=== PATIENT | female | born 1960 | race Caucasian/White ===

== ENCOUNTER 2021-02-20 08:56 | Outpatient (REF) | payer OTHER, SELFPAY ==
[2021-02-20 09:46] LABS: Hematocrit 45.6 % (37-47); Hemoglobin 14.6 g/dl (12.0-16.0); Mean Corpuscular Hemoglobin 28.6 pg (27.0-33.0); Mean Corpuscular Volume 89.4 fL (80-98); Mean Platelet Volume 9.9 fL (9.4-12.3); Platelet Count 301 X10*3/uL (160-400); Red Cell Distribution Width 13.8 % (11.0-16.0); White Blood Count 8.6 X10*3/uL (4.8-10.8)
[2021-02-20 09:50] LABS: Glucose Urine UA NEG (NEG); Leukocyte Esterase Urine NEG (NEG); Nitrite Urine NEG (NEG); PH 6.5 (5.0-8.0); Urine Blood TRACE (NEG); Urine Ketones 5 MG/DL (NEG); Urine Protein NEG (NEG-TRACE)
[2021-02-20 09:56] LABS: Appearance Urine HAZY; Color Urine YELLOW
[2021-02-20 10:09] LABS: WBC Urine 0 /HPF (0-4)
[2021-02-20 10:10] LABS: Bacteria Urine 1+ /LPF; Mucus Urine 3+ /LPF; Squamous Epithelial Cell Urine 2+ /LPF
[2021-02-20 10:11] LABS: Alanine Aminotransferase 15 U/L (0-31); Albumin Level 4.2 g/dL (3.5-5.0); Alkaline Phosphatase 97 U/L (39-117); Anion Gap 12 (12-20); Aspartate Amino Transferase 15 U/L (5-31); Bilirubin Direct < 0.2 mg/dL (0.0-0.5); Bilirubin Total 0.3 mg/dL (0.0-1.0); Blood Urea Nitrogen 15 mg/dL (9-16); Calcium 9.2 mg/dL (8.4-10.2); Carbon Dioxide 27 mmol/L (22-29); Chloride 108 mmol/L (96-108); Cholesterol 281 mg/dL; Estimated Glomerular Filt Rate > 60; Glucose Random 100 mg/dL (60-115); HDL Cholesterol 41 mg/dL; LDL Cholesterol Calculated 206 mg/dl; Potassium 4.8 mmol/L (3.3-5.1); Sodium 142 mmol/L (135-145); Triglycerides 172 mg/dL
[2021-02-20 10:25] LABS: Thyroid Stimulating Hormone 0.92 uIU/mL (0.32-4.0)
[2021-02-20 11:30] LABS: Erythrocyte Sedimentation Rate 28 MM/HR (0-20)
[2021-02-21 09:06] LABS: Lyme Abs Screen <0.90 index
== END 2021-02-20 08:57 | disposition home or self-care (01) ==
LOC: HO.LAB 08:56
PROVIDERS: PCP Internal Medicine; Visit Provider Internal Medicine
DX: M16.11 Unilateral primary osteoarthritis, right hip (principal)
CPT/HCPCS: 36415; 80048; 80061; 80076; 81001; 84443; 85027; 85652; 86617; 86618

== ENCOUNTER 2021-03-10 07:49 | Outpatient (REF) | payer OTHER, SELFPAY | END 2021-03-10 07:50 | disposition home or self-care (01) | LOC: HO.HOSX 07:49 | PROVIDERS: Visit Provider Physician Assistant | DX: Z13.89 Encounter for screening for other disorder (principal) ==

== ENCOUNTER 2021-04-15 15:25 | Outpatient (REF) | payer OTHER, MEDICAID, SELFPAY ==
--- NOTE | ~2021-04-15 | MM_ITS ---
EXAMINATION: MM SCREENING DIGITAL BREAST TOMOSYNTHESIS, BILATERAL CLINICAL INFORMATION: Screening. Asymptomatic. The lifetime risk of breast cancer based on the Tyrer-Cuzick Model is 5.2%. COMPARISON: Mammography: None TECHNIQUE: Digital breast tomosynthesis is performed in both the craniocaudal and mediolateral oblique views along with computer-aided detection (CAD). Synthesized 2D images are generated from the tomosynthesis. FINDINGS: There are scattered areas of fibroglandular density (ACR BI-RADS breast composition Category b). There are no significant masses, abnormal calcifications, or other abnormalities. Region of question architectural distortion in the central aspect on craniocaudal view right breast as seen on tomosynthesis views directly represents superimposition of vascular structures. MM/MM tomosynthesis screening BI IMPRESSION: No mammographic evidence of malignancy. ASSESSMENT: BI-RADS 1: Negative RECOMMENDATION: Routine annual mammography screening. This patient's information was entered into a reminder system with a target due date for their next mammogram.
== END 2021-04-15 15:26 | disposition home or self-care (01) ==
LOC: HO.MAMMO 15:25
PROVIDERS: Visit Provider Internal Medicine
DX: Z12.31 Encounter for screening mammogram for malignant neoplasm of breast (principal)
CPT/HCPCS: 77063; 77067

== ENCOUNTER 2022-01-15 12:09 | Outpatient (REF) | payer OTHER, MEDICAID, SELFPAY ==
--- NOTE | ~2022-01-15 | XR_ITS ---
EXAMINATION: XR KNEE, RIGHT CLINICAL INFORMATION: M17.11 - Unilateral primary osteoarthritis, right knee COMPARISON: Radiographs right knee 04/27/2019 TECHNIQUE: Right knee is imaged in 3 views including AP projections with weightbearing. FINDINGS: Normal bony mineralization. No fracture dislocation or destructive process. There are tricompartment osteoarthritic changes, greatest medial compartment, with joint narrowing and subchondral sclerosis. There are osteophytes from the femoral condyles and tibial plateau and patella. Degenerative changes are slightly increased since 2019. Small suprapatellar effusion. Hoffa's fat pad is unremarkable. There is borderline spurring at quadriceps insertion. There are no erosive changes or definite chondrocalcinosis. XR/XR knee RT 2V IMPRESSION: -Tricompartment osteoarthritis, greatest medial compartment. -Small suprapatellar effusion.
[2022-01-15 12:26] LABS: MANUAL DIFF FLAG NO
[2022-01-15 12:35] LABS: Basophils Absolute Auto 0.1 X10*3/uL (0.0-0.2); Basophils Percent Auto 0.6 % (0-2); Eosinophils Absolute Auto 0.2 X10*3/uL (0.0-0.4); Eosinophils Percent Auto 2.4 % (0-4); Hematocrit 41.8 % (37.0-47.0); Hemoglobin 13.5 g/dl (12.0-16.0); Imm Gran Abs Auto 0.01 X10*3/uL (0.00-0.03); Imm Gran Pct Auto 0.1 % (0.0-0.4); Lymphocytes Absolute Auto 3.2 X10*3/uL (1.2-4.9); Lymphocytes Percent Auto 41.1 % (20-40); Mean Corpuscular HGB Conc 32.3 g/dl (31.0-35.0); Mean Corpuscular Hemoglobin 28.6 pg (27.0-33.0); Mean Corpuscular Volume 88.6 fL (80.0-98.0); Mean Platelet Volume 9.8 fL (9.4-12.3); Monocytes Absolute Auto 0.4 X10*3/uL (0.1-1.2); Monocytes Percent Auto 5.6 % (2-11); Neutrophils Absolute Auto 3.9 x10*3/uL (2.0-8.3); Neutrophils Percent Auto 50.2 % (45-73); Platelet Count 254 X10*3/uL (160-400); Red Blood Count 4.72 X10*6/uL (4.20-5.50); Red Cell Distribution Width 14.4 % (11.0-16.0); White Blood Count 7.8 X10*3/uL (4.8-10.8)
[2022-01-15 13:10] LABS: Estimated Average Glucose 108 mg/dL; Hemoglobin A1c % 5.4 %
[2022-01-15 13:14] LABS: Alanine Aminotransferase 15 U/L (0-31); Albumin Level 4.2 g/dL (3.5-5.0); Alkaline Phosphatase 101 U/L (39-117); Anion Gap 11 (12-20); Aspartate Amino Transferase 14 U/L (5-31); Bilirubin Total 0.3 mg/dL (0.0-1.0); Blood Urea Nitrogen 13 mg/dL (9-16); Calcium 9.9 mg/dL (8.4-10.2); Carbon Dioxide 26 mmol/L (22-29); Chloride 107 mmol/L (96-108); Cholesterol 294 mg/dL; Estimated Glomerular Filt Rate > 60; Glucose Random 98 mg/dL (60-115); HDL Cholesterol 36 mg/dL; LDL Cholesterol Calculated 201 mg/dl; Potassium 4.2 mmol/L (3.3-5.1); Sodium 140 mmol/L (135-145); Total Protein 7.2 g/dL (6.5-8.0); Triglycerides 287 mg/dL
[2022-01-15 13:36] LABS: Free T4 (Free Thyroxine) 0.88 ng/dL (0.71-1.85); Thyroid Stimulating Hormone 1.41 uIU/mL (0.32-4.0)
[2022-01-15 13:49] LABS: Folate > 20.0 ng/mL (> or = 4.0); Vitamin B12 944 pg/mL (200-900)
== END 2022-01-15 12:10 | disposition home or self-care (01) ==
LOC: HO.XRAY 12:09
PROVIDERS: PCP Internal Medicine; Visit Provider Internal Medicine
DX: M17.11 Unilateral primary osteoarthritis, right knee (principal); E78.00 Pure hypercholesterolemia, unspecified
CPT/HCPCS: 36415; 73560; 80053; 80061; 82306; 82607; 82746; 83036; 84439; 84443; 85025

== ENCOUNTER → 2022-01-21 09:42 | Outpatient (BNVA) | payer OTHER, MEDICAID, SELFPAY | PROVIDERS: PCP Internal Medicine; Visit Provider Orthopaedic Surgery | DX: M17.11 Unilateral primary osteoarthritis, right knee (principal) | CPT/HCPCS: 99202 ==

== ENCOUNTER → 2022-03-08 08:02 | Outpatient (BNVA) | payer MEDICARE, OTHER, MEDICAID, SELFPAY | PROVIDERS: PCP Internal Medicine; Visit Provider Physician Assistant | DX: Z12.11 Encounter for screening for malignant neoplasm of colon (principal); K52.9 Noninfective gastroenteritis and colitis, unspecified; R63.4 Abnormal weight loss; K21.9 Gastro-esophageal reflux disease without esophagitis; Z87.891 Personal history of nicotine dependence | CPT/HCPCS: 99202 ==

== ENCOUNTER 2022-04-27 11:46 | Outpatient (REF) | payer MEDICARE, OTHER, MEDICAID, SELFPAY ==
--- NOTE | ~2022-04-27 | XR_ITS ---
EXAMINATION: XR CHEST CLINICAL INFORMATION: Abnormal weight loss COMPARISON: Previous chest x-rays most recent June [address] most recent November 2018 TECHNIQUE: 2 views of the chest were obtained. FINDINGS: The cardiac and mediastinal contours are stable. There is increased attenuation at the right cardiophrenic angle that is stable and compared with previous chest CT likely corresponds to prominent epicardial fat. The lungs are clear. There is no pleural effusion or pneumothorax. There are degenerative changes of the spine. XR/XR chest 2V IMPRESSION: No evidence for acute disease in the chest.
[2022-04-27 13:08] LABS: C Reactive Protein 1.37 mg/dL (< or = 0.50)
[2022-04-27 13:13] LABS: Erythrocyte Sedimentation Rate 27 MM/HR (0-20)
[2022-04-29 14:12] LABS: Transglutaminase IgA <1.0 U/mL
[2022-05-04 15:17] LABS: Endomysial IgA Antibody Negative (Negative)
== END 2022-04-27 11:47 | disposition home or self-care (01) ==
LOC: HO.LAB 11:46
PROVIDERS: PCP Internal Medicine; Visit Provider Physician Assistant
DX: K52.9 Noninfective gastroenteritis and colitis, unspecified (principal); R63.4 Abnormal weight loss; K21.9 Gastro-esophageal reflux disease without esophagitis; Z87.891 Personal history of nicotine dependence
CPT/HCPCS: 36415; 71046; 85652; 86140; 86231; 86364

== ENCOUNTER → 2022-08-09 09:10 | Outpatient (BNVA) | payer MEDICARE, MEDICAID, SELFPAY | PROVIDERS: PCP Internal Medicine; Visit Provider Orthopaedic Surgery | DX: M17.11 Unilateral primary osteoarthritis, right knee (principal); M54.30 Sciatica, unspecified side; M47.812 Spondylosis without myelopathy or radiculopathy, cervical region | CPT/HCPCS: 99212 ==

== ENCOUNTER 2022-09-29 09:30 | Outpatient (REF) | payer MEDICARE, MEDICAID, SELFPAY ==
--- NOTE | ~2022-09-29 | MM_ITS ---
EXAMINATION: MM SCREENING DIGITAL BREAST TOMOSYNTHESIS, BILATERAL CLINICAL INFORMATION: Screening. Asymptomatic. The lifetime risk of breast cancer based on the Tyrer-Cuzick Model is 8.6%. COMPARISON: Mammography: 04/15/2021 TECHNIQUE: Digital breast tomosynthesis is performed in both the craniocaudal and mediolateral oblique views along with computer-aided detection (CAD). Synthesized 2D images are generated from the tomosynthesis. FINDINGS: There are scattered areas of fibroglandular density (ACR BI-RADS breast composition category B). There is a stable parenchymal pattern of the left breast with no new abnormal dominant masses or suspicious grouping of microcalcifications. Within the upper outer aspect of the right breast, there appear to be some intramammary lymph nodes. No suspicious grouping of microcalcifications is identified. MM/MM tomosynthesis screening BI IMPRESSION: No significant change. ASSESSMENT: BI-RADS 2: Benign RECOMMENDATION: Routine annual mammography screening. This patient's information was entered into a reminder system with a target due date for their next mammogram.
== END 2022-09-29 09:31 | disposition home or self-care (01) ==
LOC: HO.MAMMO 09:30
PROVIDERS: Visit Provider Internal Medicine
DX: Z12.31 Encounter for screening mammogram for malignant neoplasm of breast (principal)
CPT/HCPCS: 77063; 77067

== ENCOUNTER → 2022-10-05 10:46 | Outpatient (BNVA) | payer MEDICARE, OTHER, MEDICAID, SELFPAY | PROVIDERS: PCP Internal Medicine; Visit Provider Orthopaedic Surgery | DX: Z13.89 Encounter for screening for other disorder (principal) ==

== ENCOUNTER 2022-10-19 13:29 | Outpatient (REF) | payer MEDICARE, OTHER, MEDICAID, SELFPAY ==
--- NOTE | 2022-10-19 13:36 | ECG_ITS ---
Test Reason : preop Blood Pressure : / mmHG Vent. Rate : 070 BPM Atrial Rate : 070 BPM P-R Int : 214 ms QRS Dur : 092 ms QT Int : 408 ms P-R-T Axes : 056 -16 070 degrees QTc Int : 440 ms Sinus rhythm with 1st degree A-V block Minimal voltage criteria for LVH, may be normal variant ( [place] product ) Borderline ECG No previous ECGs available Referred By: David Mosquera Electronically Signed By:ALPHONSE ASHLEY MD
[2022-10-19 13:44] LABS: MANUAL DIFF FLAG NO
[2022-10-19 13:55] LABS: Basophils Absolute Auto 0.1 X10*3/uL (0.0-0.2); Basophils Percent Auto 0.7 % (0-2); Eosinophils Absolute Auto 0.3 X10*3/uL (0.0-0.4); Eosinophils Percent Auto 2.7 % (0-4); Hematocrit 42.6 % (37.0-47.0); Imm Gran Abs Auto 0.04 X10*3/uL (0.00-0.03); Imm Gran Pct Auto 0.4 % (0.0-0.4); Lymphocytes Absolute Auto 3.7 X10*3/uL (1.2-4.9); Lymphocytes Percent Auto 37.1 % (20-40); Mean Corpuscular HGB Conc 32.9 g/dl (31.0-35.0); Mean Corpuscular Hemoglobin 28.9 pg (27.0-33.0); Mean Corpuscular Volume 87.8 fL (80.0-98.0); Mean Platelet Volume 9.6 fL (9.4-12.3); Monocytes Absolute Auto 0.6 X10*3/uL (0.1-1.2); Monocytes Percent Auto 6.2 % (2-11); Neutrophils Absolute Auto 5.3 x10*3/uL (2.0-8.3); Neutrophils Percent Auto 52.9 % (45-73); Platelet Count 248 X10*3/uL (160-400); Red Blood Count 4.85 X10*6/uL (4.20-5.50); Red Cell Distribution Width 13.8 % (11.0-16.0); White Blood Count 10.1 X10*3/uL (4.8-10.8)
[2022-10-19 14:28] LABS: Anion Gap 15 (12-20); Blood Urea Nitrogen 17 mg/dL (9-16); Carbon Dioxide 25 mmol/L (22-29); Chloride 104 mmol/L (96-108); Estimated Glomerular Filt Rate > 60; Glucose Random 95 mg/dL (60-115); Potassium 3.9 mmol/L (3.3-5.1); Sodium 140 mmol/L (135-145)
== END 2022-10-19 13:30 | disposition home or self-care (01) ==
LOC: HO.LAB 13:29
PROVIDERS: PCP Internal Medicine; Visit Provider Orthopaedic Surgery
DX: Z01.810 Encounter for preprocedural cardiovascular examination (principal); Z01.812 Encounter for preprocedural laboratory examination
CPT/HCPCS: 36415; 80048; 85025; 93005

== ENCOUNTER 2022-10-28 13:34 | Outpatient (RCR) | payer MEDICARE, MEDICAID, SELFPAY ==
--- NOTE | 2022-10-28 14:50 | MHC.PT.EP ---
[facility] [place] Office [place] [facility] [place] Office [address] Amber Felton 140 [facility] [phone] F: [phone] F: [phone] F: [phone] F: [phone] Physical Therapy Plan of Care Date of Evaluation: Date of Surgery: 11/10/2022 Diagnosis: RIGHT knee osteoarthritis prehab for R TKA scheduled 11/10/2022 Assessment: Patient is a pleasant 62 y.o. female who is referred to PT by Dr. David Mosquera MD, with Dx of RIGHT knee osteoarthritis, and prehab for TKA scheduled on 11/10/2022. Patient impairments include pain, swelling, weakness, limited ROM, antalgic gait. Patient current functional limitations are bending, stair use, heavy lifting, walking long distance, prolonged standing. Patient will only be seen for this visit and educated in preparation for surgery. She agrees with this plan, all questions answered. Frequency and Duration: The patient will be seen no FUP, just today's visit for education and preparation for surgery Short Term Goals: Assisted Goals: Treatment Plan: Modalities to reduce pain, spasms and effusion. Manual therapy to restore motion and function. Therapeutic exercise to improve strength and flexibility. Neuromuscular re-education for posture and balance. Therapeutic activities to return to functional activities of daily living. Electronically signed by: Kirsty Parker, PT, DPT Please sign and return to therapist. Thank you for your referral.
== END 2022-10-28 14:50 | disposition home or self-care (01) ==
LOC: HO.PT 13:34
PROVIDERS: PCP Internal Medicine; Visit Provider Orthopaedic Surgery
DX: M17.11 Unilateral primary osteoarthritis, right knee (principal)
CPT/HCPCS: 97110; 97161; 97530

== ENCOUNTER → 2022-11-04 11:03 | Outpatient (BNVA) | payer MEDICARE, OTHER, MEDICAID, SELFPAY | PROVIDERS: PCP Internal Medicine; Visit Provider Physician Assistant | DX: Z01.818 Encounter for other preprocedural examination (principal); M17.11 Unilateral primary osteoarthritis, right knee | CPT/HCPCS: 99212 ==

== ENCOUNTER 2022-11-10 06:01 | Inpatient (IN) | payer MEDICARE, MEDICAID, SELFPAY ==
[2022-10-28 11:55] VITALS: BP 175/83; PULSE 71; RESP 16; O2SAT 97; BMI 39.1
--- NOTE | 2022-10-28 12:10 | P.CONAN_ITS ---
Documented by User: Marie Villanueva NP 11/09/22 08:33 HPI - Anesthesia Eval Consult details Narrative: 62yo F for Right Knee Replacement Total 11/10/2022 PCP cleared [facility] Active Problems Active Problems: All Active Problems (Updated 10/19/22 @ 14:27 by Immanuel Sims MD) Preop exam for internal medicine (Acute) Colonoscopy refused (Acute) Colon cancer screening (Acute) Tobacco abuse (Acute) RLS (restless legs syndrome) (Acute) Sciatica (Acute) Weight loss (Acute) Chronic diarrhea (Acute) COPD (chronic obstructive pulmonary disease) (Acute) Personal history of nicotine dependence (Acute) Hypertension (Acute) Hypercholesterolemia (Acute) GERD (gastroesophageal reflux disease) (Acute) Retinal degenerative disease (Acute) Hypersomnia (Acute) Insomnia (Acute) Generalized anxiety disorder (Acute) Obesity (Acute) Class 2 severe obesity with body mass index (BMI) of 35 to 39.9 with serious comorbidity (Acute) DJD (degenerative joint disease) of cervical spine (Acute) Osteoarthritis of right knee (Acute) Osteoarthritis of right hip (Acute) Past Medical History Medical History COPD (chronic obstructive pulmonary disease) Generalized anxiety disorder GERD (gastroesophageal reflux disease) Hypercholesterolemia Hypertension Insomnia Osteoarthritis of right hip Personal history of COVID-19 Smoker Family History Family History Mother No problems noted. Father Myocardial infarct Lung cancer Sister Myocardial infarct CVA (cerebral vascular accident) Ovarian cancer Brother CVA (cerebral vascular accident) Family history of problems with anesthesia: No Surgical History Surgical History History of carpal tunnel release of both wrists History of section History of inguinal hernia repair History of Problems with Anesthesia: No Social History Social History Housing: House Are you a primary farm or ranch animal caretaker to a significant other at home: No Do you presently have visiting nurse or other home services: No Alcohol intake: current Alcohol intake frequency: holidays/special occasions only Alcohol type: wine Patient Tobacco Use Status: Current everyday Tobacco user Tobacco use type: Cigarette Cigarettes Per Day: 10 Years Smoked: 2 Smoked in Last 30 Days: Yes e-Cigarette/Vaping Use: Never Used Patient Interested in Nicotine Replacement: Yes Patient Given Instructions on How to Stop Smoking: Yes Date Education Initiated: 10/28/22 Second Hand Smoke Exposure: No Use of substances other than those prescribed or required for medical reasons: No Have you been hit, kicked, punched, or otherwise hurt by someone within the past year? If so, by whom?: No Are you DNR?: No Advance Directives: No Advance Directives Information Provided: Yes Advance Directives on File: No Recently lost weight without trying: Yes How much weight loss: 24-33 pounds Eating poorly because of decreased appetite: Yes Nutrition screen score: 6 service: No Current occupational status: disabled Current occupation: Right handed Cognitive needs: No Hearing needs: No Vision needs: Yes Narrative Narrative: No recent illness No CP/SOB within limits of pain Meds Allergies Allergy/AdvReac Type Severity Reaction Status Date / Time amitriptyline AdvReac Severe worsening Verified 11/04/22 11:14 anxiety gabapentin AdvReac Severe increased Verified 11/04/22 11:14 anxiety, dyspnea Home Medications Medication Instructions Recorded Confirmed Last Taken Type acetaminophen 650 mg 650 mg PO Q12H PRN Pain 10/27/22 10/27/22 11/09/22 History tablet,extended release Nicoderm 10/28/22 11/10/22 History Exam Exam Date and Time: October 28, 2022 1210 Height,Weight and Vital Signs: Height 5 ft 2 in Weight 97.069 kg Last Vital Signs Pulse 71 10/28/22 11:55 Resp 16 10/28/22 11:55 BP 175/83 H 10/28/22 11:55 Pulse Ox 97 10/28/22 11:55 O2 Del Method 10/28/22 11:55 Pertinent Lab Results Pertinent Lab Results: Laboratory Tests 10/19/22 10/19/22 13:42 13:42 WBC 10.1 Hgb 14.0 Hct 42.6 Plt Count 248 Sodium 140 Potassium 3.9 Chloride 104 Carbon Dioxide 25 BUN 17 H Creatinine 0.82 Narrative Narrative: EKG 09/2022 Vent. Rate : 070 BPM ? ? Atrial Rate : 070 BPM ?? P-R Int : 214 ms? QRS Dur : 092 ms ? ? QT Int : 408 ms ? ? ? P-R-T Axes : 056 -16 070 degrees ?? QTc Int : 440 ms ? Sinus rhythm with 1st degree A-V block Minimal voltage criteria for LVH, may be normal variant ( [place] product ) Borderline ECG No previous ECGs available Airway TM Dist: >3cm Neck ROM: Full Denture: Upper and Lower (Doesnt wear) Assessment and Plan Assessment Anesthesia Assessment: Anesthesia Plan Discussed, Smoking Cess. Discussed (Pt will consider nicotine patch) and PAT Visit Final Anesthetic Review Family History of Problems with Anesthesia: No History of Problems with Anesthesia: No Documented by User: Charu Chakraborty MD 11/10/22 07:56 PMFSH Past Medical History Medical History COPD (chronic obstructive pulmonary disease) Generalized anxiety disorder GERD (gastroesophageal reflux disease) Hypercholesterolemia Hypertension Insomnia Osteoarthritis of right hip Personal history of COVID-19 Smoker Family History Family History Mother No problems noted. Father Myocardial infarct Lung cancer Sister Myocardial infarct CVA (cerebral vascular accident) Ovarian cancer Brother CVA (cerebral vascular accident) Surgical History Surgical History History of carpal tunnel release of both wrists History of section History of inguinal hernia repair Social History Social History Housing: House Are you a primary farm or ranch animal caretaker to a significant other at home: No Do you presently have visiting nurse or other home services: No Alcohol intake: current Alcohol intake frequency: holidays/special occasions only Alcohol type: wine Patient Tobacco Use Status: Current everyday Tobacco user Tobacco use type: Cigarette Cigarettes Per Day: 10 Years Smoked: 2 Smoked in Last 30 Days: Yes e-Cigarette/Vaping Use: Never Used Patient Interested in Nicotine Replacement: Yes Patient Given Instructions on How to Stop Smoking: Yes Date Education Initiated: 10/28/22 Second Hand Smoke Exposure: No Use of substances other than those prescribed or required for medical reasons: No Have you been hit, kicked, punched, or otherwise hurt by someone within the past year? If so, by whom?: No Are you DNR?: No Advance Directives: No Advance Directives Information Provided: Yes Advance Directives on File: No Recently lost weight without trying: Yes How much weight loss: 24-33 pounds Eating poorly because of decreased appetite: Yes Nutrition screen score: 6 service: No Current occupational status: disabled Current occupation: Right handed Cognitive needs: No Hearing needs: No Vision needs: Yes Meds Allergies Allergy/AdvReac Type Severity Reaction Status Date / Time amitriptyline AdvReac Severe worsening Verified 11/04/22 11:14 anxiety gabapentin AdvReac Severe increased Verified 11/04/22 11:14 anxiety, dyspnea Home Medications Medication Instructions Recorded Confirmed Last Taken Type acetaminophen 650 mg 650 mg PO Q12H PRN Pain 10/27/22 10/27/22 11/09/22 History tablet,extended release Nicoderm 10/28/22 11/10/22 History Exam Airway Mallampati Class: II Heart: rrr Lungs: cta Assessment and Plan Assessment Anesthesia Assessment: Chart Reviewed Final Anesthetic Review NPO: Yes ASA Class: III Final Preanesthetic Review: No Changes in Pt Med Stat, Consent Obtained/Reviewed and Anes Risks/Benef Reviewed Patient Risk: Intermediate Procedure Risk: Intermediate Anesthetic Plan Anesthetic Plan: Spinal, Regional Block and Agree w/ Assess. and Plan Disposition: Standard PACU
[2022-10-28 14:25] LABS: MRSA Nasal PCR NEGATIVE (Negative); SA Nasal PCR NEGATIVE (Negative)
[2022-11-10] VITALS (24 sets, daily range): BP systolic 91–188; BP diastolic 41–92; PULSE 51–71; RESP 10–20; TEMP 36.1–36.9; O2SAT 93–98
--- NOTE | ~2022-11-10 | XR_ITS ---
EXAMINATION: XR KNEE, RIGHT CLINICAL INFORMATION: Status post total right knee arthroplasty. COMPARISON: Right knee radiographs dated 01/15/2022. TECHNIQUE: AP, oblique, and lateral of the right knee. FINDINGS: Prosthetic components of the right total knee arthroplasty are appropriately aligned. No periprosthetic fracture. Gas from recent surgery is present in the joint and surrounding soft tissues. A joint effusion is present. XR/XR knee RT 2V IMPRESSION: Appropriate alignment of the right total knee arthroplasty.
[2022-11-10 06:41] LABS: COVID-19 Test Negative (Negative); IDNOW Serial# 16C4AD1C
[2022-11-10 06:43] LABS: Hemoglobin 14.4 g/dl (12.0-16.0)
[2022-11-10] MEDS: Lactated Ringers 1,000 ML 100 ML IVCONT ×2 (06:52→10:22)
--- NOTE | 2022-11-10 07:35 | MHC.SHP ---
Pre-Procedural Eval Section A Date of Service: 11/10/22 The patient is an INPATIENT: No Changes since office visit: No Cold of Flu in the past 2 weeks, No New Medical Problems, No Changes in Medication and No Patient answered all questions The History & Physical has been completed within 30 days and I have reviewed it.: Yes Section B Chief Complaint: Unilateral primary osteoarthritis, right knee Allergies: Allergies Allergy/AdvReac Type Severity Reaction Status Date / Time amitriptyline AdvReac Severe worsening Verified 11/04/22 11:14 anxiety gabapentin AdvReac Severe increased Verified 11/04/22 11:14 anxiety, dyspnea Plan I have reviewed the history and physical and performed a pertinent physical examination on my patient. No changes have occurred unless specified. Time Spent With Patient Time: Total time managing care of this patient today ____ minutes.
--- NOTE | 2022-11-10 09:14 | PM.OP ---
Brief Operative Note Date of Service: 11/10/22 Pre-op diagnosis: right knee OA Post-op diagnosis: same Procedure: Right TKA Implants: Karina Triathlon press fit CR 10/23/10 Surgeon: David Mosquera MD Anesthesia: regional and spinal Was an Healthcare Financial Analyst used for this Procedure?: Yes Healthcare Financial Analyst: Amelia Navarro Estimated blood loss (mL): 175 IV fluids (mL): 1,000 Pathology: other Condition: stable Disposition: PACU
[2022-11-10] MEDS: HYDROmorphone HCl 0.5 MG/0.5 ML SYRINGE 0.25 MG IVPUSH ×7 (10:30→23:59)
[2022-11-10] MEDS: oxyCODONE HCl Immed Release 5 MG TABLET 10 MG PO ×4 (11:11→22:29)
[2022-11-10] MEDS: ceFAZolin Sodium/Dextrose,Iso 2 GM/50 ML PIGGYBACK IV (13:25)
--- NOTE | 2022-11-10 14:01 | HO.PM.IMCN ---
History of Present Illness Data of Consult Service Date: 11/10/22 Requesting physician: David Mosquera Primary Care Provider: Immanuel Sims MD HPI 62 year old women with hx of HTN and COPD admitted by Orthopedic surgery and is status post right knee arthroplasty. Surgery was unremarkable. Patient denies any pain. She has been able to eat and drink without any nausea or vomiting. She is currently resting in bed. vital signs stable. Review of Systems Review of Systems: Denies any recent fever chills or decrease in appetite respiratory denies any shortness of breath coverage production cardiovascular denies chest pain gastrointestinal denies any dysphagia abdominal pain nausea vomiting or diarrhea genitourinary denies any dysuria frequency or hematuria musculoskeletal denies any joint pain or swelling neuropsych denies any weakness or seizures all other systems reviewed are negative [facility] Medical History COPD (chronic obstructive pulmonary disease) Generalized anxiety disorder GERD (gastroesophageal reflux disease) Hypercholesterolemia Hypertension Insomnia Osteoarthritis of right hip Personal history of COVID-19 Smoker Family History Mother No problems noted. Father Myocardial infarct Lung cancer Sister Myocardial infarct CVA (cerebral vascular accident) Ovarian cancer Brother CVA (cerebral vascular accident) Surgical History History of carpal tunnel release of both wrists History of section History of inguinal hernia repair Social History Household Members: Family Housing: House Are you a primary home care music therapist to a significant other at home: No Do you presently have visiting nurse or other home services: No Alcohol intake: current Alcohol intake frequency: holidays/special occasions only Alcohol type: wine Patient Tobacco Use Status: Never used Tobacco Tobacco use type: Cigarette Cigarettes Per Day: 10 Years Smoked: 2 Smoked in Last 30 Days: Yes e-Cigarette/Vaping Use: Never Used Patient Interested in Nicotine Replacement: Yes Patient Given Instructions on How to Stop Smoking: Yes Date Education Initiated: 10/28/22 Second Hand Smoke Exposure: No Use of substances other than those prescribed or required for medical reasons: No Currently Displaying Signs/Symptoms of Drug Intoxication Withdrawal: No Have you been hit, kicked, punched, or otherwise hurt by someone within the past year? If so, by whom?: No Do you feel safe in your current relationship?: Yes Is there a partner from a previous relationship who is making you feel unsafe now?: No Are you DNR?: No Advance Directives: No Advance Directives Information Provided: Yes Advance Directives on File: No Do you have thoughts of harming others: None Do you have a plan to hurt others: No Plan Recently lost weight without trying: No How much weight loss: 24-33 pounds Eating poorly because of decreased appetite: Yes Nutrition screen score: 4 Nutrition Risks: No Nutritional Risk Patient : No : No Poor oral hygiene: No service: No Current occupational status: disabled Current occupation: Right handed Cognitive needs: No Hearing needs: No Vision needs: Yes Meds Allergies Allergy/AdvReac Type Severity Reaction Status Date / Time amitriptyline AdvReac Severe worsening Verified 11/04/22 11:14 anxiety gabapentin AdvReac Severe increased Verified 11/04/22 11:14 anxiety, dyspnea Active Medications: Current Medications Acetaminophen (Acetaminophen 325 Mg Tablet) 650 mg PO Q6H PRN PRN Reason: Pain, Mild (Pain Scale 1-3) Celecoxib (Celecoxib 200 Mg Capsule) 200 mg PO BID RENETTA Hydromorphone HCl (Hydromorphone Hcl 0.5 Mg/0.5 Ml Syringe) 0.25 mg IVPUSH Q4H PRN; Protocol PRN Reason: Pain, Severe (Pain Scale 7-10) Lactated Ringer's (Lr) 1,000 mls @ 100 mls/hr IVCONT .Q10H [facility] Last Infusion: 11/10/22 10:20 Dose: Infused Lactated Ringer's (Lr) 1,000 mls @ 100 mls/hr IVCONT .Q10H [facility] Last Admin: 11/10/22 10:22 Dose: 100 mls/hr Cefazolin Sodium/Dextrose (Ancef) 2 gm in 50 mls @ 100 mls/hr IV POSTOP ONE Stop: 11/10/22 14:29 Last Infusion: 11/10/22 13:57 Dose: Infused Ondansetron HCl (Ondansetron Hcl 4 Mg/2 Ml Vial) 4 mg IVPUSH Q8H PRN PRN Reason: Nausea and Vomiting Oxycodone HCl (Oxycodone Hcl Immed Release 5 Mg Tablet) 10 mg PO Q4H PRN PRN Reason: Pain, Moderate (Pain Scale 4-6 Last Admin: 11/10/22 11:11 Dose: 10 mg Oxycodone HCl (Oxycodone Hcl Er 10 Mg Tab.Er.12h) 10 mg PO BID RENETTA Senna (Sennosides 8.6 Mg Tablet) 17.2 mg PO BEDTIME PRN PRN Reason: Constipation Sodium Chloride (0.9 % Sodium Chloride Flush 3 Ml Syringe) 3 ml IVFLUSH QSHIFT RENETTA Last Admin: 11/10/22 13:14 Dose: Not Given Home Medications Medication Instructions Recorded Confirmed Last Taken Type acetaminophen 650 mg 650 mg PO Q12H PRN Pain 10/27/22 10/27/22 11/09/22 History tablet,extended release Nicoderm 10/28/22 11/10/22 History Physical Exam Vital Signs and Narrative: Vital Signs: Last Vital Signs Temp 97.2 F 11/10/22 11:51 Pulse 69 11/10/22 13:38 Resp 18 11/10/22 11:51 BP 158/68 H 11/10/22 13:38 Pulse Ox 97 11/10/22 13:38 O2 Del Method 11/10/22 11:51 O2 Flow Rate 2.0 11/10/22 11:51 BMI result Body Mass Index 39.1 Appearing in no acute distress head is normocephalic atraumatic eyes pupils are PERRLA sclera is anicteric mouth throat mucous membranes are intact and moist neck is supple no lymphadenopathy, no JVD noted lung sounds are clear to auscultation heart regular rate rhythm, clear S1, S2 positive bowel sounds, abdomen is soft, nontender neuro patient is alert x3, no focal deficits Right knee surgical incision covered with dressing Results Labs 11/10/22 06:31 Labs: Laboratory Results - last 24 hr 11/10/22 06:11 COVID-19 ([facility]) Negative COVID-19 Clin Com See Note Imaging Radiologist's Impressions: Impressions Knee X-Ray 11/10/22 09:45 IMPRESSION: Appropriate alignment of the right total knee arthroplasty. Assessment and Plan (1) Osteoarthritis of right knee: Status: Acute Plan 62 year old women s/p RTKA RTKA management as per surgical team pain management HTN elevated blood pressure readings continue Lisinopril Mental health continue home medications DVT prophylaxis as per surgical team Attending Dr. Alva Full code Medical consult complete, will sign off Time Spent With Patient Time: Total time managing care of this patient today ____ minutes.
[2022-11-10] MEDS: Acetaminophen 325 MG TABLET 650 MG PO ×2 (14:49→22:29)
[2022-11-10] MEDS: oxyCODONE HCl ER 10 MG TAB.ER.12H PO (19:24)
[2022-11-10] MEDS: 0.9 % Sodium Chloride Flush 3 ML SYRINGE IVFLUSH (19:25)
[2022-11-10] MEDS: rOPINIRole HCL 1 MG TABLET PO (22:01)
[2022-11-11] VITALS (7 sets, daily range): BP systolic 129–178; BP diastolic 63–80; PULSE 67–85; RESP 16–18; TEMP 36.5–37.4; O2SAT 92–95
[2022-11-11] MEDS: Lactated Ringers 1,000 ML 100 ML IVCONT ×2 (02:50→21:03)
[2022-11-11] MEDS: oxyCODONE HCl Immed Release 5 MG TABLET 10 MG PO ×5 (03:26→21:03)
[2022-11-11] MEDS: HYDROmorphone HCl 0.5 MG/0.5 ML SYRINGE 0.25 MG IVPUSH ×3 (05:20→14:07)
[2022-11-11 06:55] LABS: MANUAL DIFF FLAG NO
[2022-11-11 06:58] LABS: Basophils Percent Auto 0.3 % (0-2); Eosinophils Percent Auto 0.1 % (0-4); Hematocrit 38.2 % (37.0-47.0); Hemoglobin 12.5 g/dl (12.0-16.0); Imm Gran Abs Auto 0.05 X10*3/uL (0.00-0.03); Imm Gran Pct Auto 0.4 % (0.0-0.4); Lymphocytes Absolute Auto 1.9 X10*3/uL (1.2-4.9); Lymphocytes Percent Auto 16.7 % (20-40); Mean Corpuscular HGB Conc 32.7 g/dl (31.0-35.0); Mean Corpuscular Hemoglobin 28.7 pg (27.0-33.0); Mean Corpuscular Volume 87.8 fL (80.0-98.0); Mean Platelet Volume 10.1 fL (9.4-12.3); Monocytes Absolute Auto 0.9 X10*3/uL (0.1-1.2); Monocytes Percent Auto 7.9 % (2-11); Neutrophils Absolute Auto 8.5 x10*3/uL (2.0-8.3); Neutrophils Percent Auto 74.6 % (45-73); Platelet Count 226 X10*3/uL (160-400); Red Blood Count 4.35 X10*6/uL (4.20-5.50); Red Cell Distribution Width 13.7 % (11.0-16.0); White Blood Count 11.5 X10*3/uL (4.8-10.8)
[2022-11-11 07:20] LABS: Anion Gap 12 (12-20); Blood Urea Nitrogen 11 mg/dL (9-16); Calcium 8.4 mg/dL (8.4-10.2); Carbon Dioxide 28 mmol/L (22-29); Chloride 102 mmol/L (96-108); Creatinine Clr Calc Pharmacy 78.2; Estimated Glomerular Filt Rate > 60; Glucose Fasting 119 mg/dL (60-99); Sodium 138 mmol/L (135-145)
[2022-11-11] MEDS: Acetaminophen 325 MG TABLET 650 MG PO ×2 (07:33→21:03)
--- NOTE | 2022-11-11 08:25 | PHA.MEDREC ---
Pharmacy Consult ? Medication Reconciliation Pharmacy has completed the medication reconciliation. Reviewed med rec done by nursing
--- NOTE | 2022-11-11 09:29 | P.PNOP_ITS ---
Subjective Subjective Date of Service: 11/11/22 Interval history: POD 1 sp RT TKA Physical Exam Vital Signs: Vital Signs: Last Vital Signs Temp 98.4 F 11/11/22 07:35 Pulse 69 11/11/22 08:07 Resp 18 11/11/22 07:35 BP 178/74 H 11/11/22 08:07 Pulse Ox 93 11/11/22 08:07 O2 Del Method Room Air 11/11/22 07:35 O2 Flow Rate 2.0 11/10/22 11:51 BMI result Body Mass Index 39.1 Const: General: cooperative, healthy appearing and no acute distress Resp: Effort & Inspection: normal respiratory effort and able to speak in complete sentences Cardio: Rate: regular rate Peripheral pulses: Peripheral pulses 2+ throughout GI: Palpation (GI): Soft to palpation Skin: General skin exam: no rashes or lesions noted Extrem: Other: incision clean dry and intact. Courtney intact. No erythema or joint effusion. Calf supple nontender. Neurovascularly intact. Procedures Date of Service Date of Service: 11/11/22 Progress Note: A&P Assessment and plan (1) Status post total right knee replacement: Status: Acute Assessment and Plan: * Continue pain mgmnt * Begin Aspirin for dvt ppx * begin PT for RT TKA * Dispo planning-Pending PT eval, pain mgmnt Time Spent With Patient Time: Total time managing care of this patient today ____ minutes. Quality Stroke Does the patient have a stroke diagnosis?: No VTE Prior VTE?: No VTE Risk Level:: Surgical - very high VTE Device Contraindication: N/A - Device Ordered VTE Drug Contraindication: N/A - Med Ordered
--- NOTE | 2022-11-11 09:46 | HO.POSTANES ---
Post Anesthesia Evaluation Post Anesthesia Evaluation Vital Signs: Vital Signs Temp Pulse Resp BP Pulse Ox O2 Del Method 11/11/22 08:07 69 178/74 H 93 11/11/22 07:35 98.4 F 69 18 178/74 H 93 Room Air 11/11/22 03:32 97.7 F 67 17 177/80 H 94 Room Air 11/10/22 23:57 98.5 F 69 18 179/79 H 95 Room Air Anesthesia: Spinal and Nerve Block Mental Status: Awake Pain Control: Satisfactory Nausea/Vomiting: None Hydration: Adequate Anesthesia-Related Issues: No Anes. Related Issues Comments: Patient s blood pressure on the higher side , being managed by the hospitalist .
[2022-11-11] MEDS: Aspirin 325 MG TABLET PO (09:51)
[2022-11-11] MEDS: oxyCODONE HCl ER 10 MG TAB.ER.12H PO ×2 (09:52→21:03)
[2022-11-11] MEDS: rOPINIRole HCL 1 MG TABLET PO ×3 (09:53→21:02)
--- NOTE | 2022-11-11 10:50 | MHC.CM.PN ---
PT REPORTS SHE LIVES WITH HER AND IS INDEPENDENT WITH CARE SHE HAD NO SERVICES AND USED A CANE SEWING MACHINIST SHE IS AWARE SHE WILL NEED VNA AT DC SHE ALSO REPORTS SHE HAS A WALKER AT HOME FOR USE UPON DC PT IS NOT COVID VAX SHE COMPLETED A HCP TODAY NAMING HER HER AGENT HER PCP IS JACINTO SCOTT IMM DELIVERED DC PLAN IS HOME WITH [facility] TO TRANSPORT
--- NOTE | 2022-11-11 12:53 | W.PM.OPN ---
Operative Note Operative Note Date of Service: 11/10/22 Narrative: Date of Service: 11/10/22 Pre-op diagnosis: right knee OA Post-op diagnosis: same Procedure: Right TKA Implants: [place] Triathlon press fit CR 10/23/10 Surgeon: David Mosquera MD Anesthesia: regional and spinal Was an Web Applications Administrator used for this Procedure?: Yes Web Applications Administrator: Amelia Navarro Estimated blood loss (mL): 175 IV fluids (mL): 1,000 Pathology: other Condition: stable Disposition: PACU Procedure in detail: The patient was brought to the operating room and prepped and draped in standard sterile fashion. A time-out was called to identify proper site proper procedure proper surgeon and IV antibiotics were administered. 1 g of IV tranexamic acid was administered. I began by making a midline incision to the retinaculum and performed a medial parapatellar arthrotomy. The patella was translated laterally and the knee was flexed up. There was medial compartment eburnation. I performed a small medial peel and resected the infrapatellar fat pad. Montague's line was then used to drill my intramedullary femoral guide and my distal femur cut of 10 mm was made in 5 degrees of valgus while protecting the soft tissues. I then measured a # 3 femur and placed my cutting guide and made my anterior posterior and chamfer cuts protecting the soft tissues at all times. Once I was satisfied with my cuts I turned my attention to the tibia. I removed the meniscus medially and laterally and , using an external cutting guide, in line with the tibial crest and the third ray, I made my distal tibial cut in 3 deg slope of while protecting the PCL the posterior soft tissues at all times. An extension block was used to confirm appropriate amount of bony resection. I then sized a #4 tibia and once I was satisfied that there was complete tibial coverage I placed my trial and with the trial femur in place took the knee through range of motion. I was satisfied with the extension and flexion as well as the stability and balance at 0, 30 and 90 degrees. I then turned my attention to the patella where I removed 1 cm from the undersurface of the patella and then trialed a 29a patellar button. Again the knee was taken through range of motion I was satisfied with the tracking. I then returned to the femur and drilled my femoral lug holes and prepared the tibia. A femoral bone plug was placed and the knee was irrigated copiously. I then press fit the patella, tibia and femur in standard fashion. I trialed different inserts until I selected a # 11 insert. The final insert was placed and a 3 minutes iodine soak with local TXA was performed. A Werewolf cautery wand was used to maintain hemostasis over the capsule and meniscal beds, the gutters and peripatellar soft tissues. The knee was then closed with a running Quill suture, a 3 0 Vicryl and magi on the skin. Patient was then placed in sterile dressing and brought to recovery room in stable condition there were no known complications.
[2022-11-11] MEDS: 0.9 % Sodium Chloride Flush 3 ML SYRINGE IVFLUSH ×2 (14:09→21:04)
[2022-11-12] MEDS: oxyCODONE HCl Immed Release 5 MG TABLET 10 MG PO ×2 (03:16→07:11)
[2022-11-12] MEDS: Acetaminophen 325 MG TABLET 650 MG PO ×2 (03:16→09:41)
[2022-11-12 03:37] VITALS: BP 141/67; PULSE 75; RESP 18; TEMP 37; O2SAT 95
[2022-11-12 05:52] LABS: MANUAL DIFF FLAG NO
[2022-11-12 05:56] LABS: Basophils Percent Auto 0.3 % (0-2); Eosinophils Percent Auto 0.3 % (0-4); Hematocrit 36.6 % (37.0-47.0); Imm Gran Abs Auto 0.04 X10*3/uL (0.00-0.03); Imm Gran Pct Auto 0.4 % (0.0-0.4); Lymphocytes Absolute Auto 1.7 X10*3/uL (1.2-4.9); Lymphocytes Percent Auto 17.1 % (20-40); Mean Corpuscular HGB Conc 32.8 g/dl (31.0-35.0); Mean Corpuscular Hemoglobin 28.9 pg (27.0-33.0); Mean Corpuscular Volume 88.2 fL (80.0-98.0); Mean Platelet Volume 10.1 fL (9.4-12.3); Monocytes Percent Auto 9.7 % (2-11); Neutrophils Absolute Auto 7.2 x10*3/uL (2.0-8.3); Neutrophils Percent Auto 72.2 % (45-73); Platelet Count 195 X10*3/uL (160-400); Red Blood Count 4.15 X10*6/uL (4.20-5.50); Red Cell Distribution Width 13.6 % (11.0-16.0)
[2022-11-12 06:11] LABS: Anion Gap 13 (12-20); Blood Urea Nitrogen 9 mg/dL (9-16); Calcium 8.3 mg/dL (8.4-10.2); Carbon Dioxide 27 mmol/L (22-29); Chloride 105 mmol/L (96-108); Creatinine Clr Calc Pharmacy 81.3; Estimated Glomerular Filt Rate > 60; Glucose Fasting 100 mg/dL (60-99); Potassium 4.3 mmol/L (3.3-5.1); Sodium 141 mmol/L (135-145)
[2022-11-12] MEDS: Enoxaparin Sodium 40 MG/0.4 ML SYRINGE SUBCUT (07:11)
[2022-11-12] MEDS: Celecoxib 200 MG CAPSULE PO (07:11)
[2022-11-12] MEDS: rOPINIRole HCL 1 MG TABLET PO (07:11)
[2022-11-12] MEDS: 0.9 % Sodium Chloride Flush 3 ML SYRINGE IVFLUSH (07:12)
[2022-11-12] MEDS: oxyCODONE HCl ER 10 MG TAB.ER.12H PO (07:12)
[2022-11-12 07:28] VITALS: BP 126/61; PULSE 85; RESP 18; TEMP 36.1; O2SAT 93
[2022-11-12 07:54] VITALS: BP 126/61; PULSE 85; O2SAT 93
--- NOTE | 2022-11-12 07:54 | P.DS_ITS ---
DS: Providers Provider Date of Service: 11/12/22 Date of admission: 11/10/22 06:01 Primary care physician: Immanuel Sims MD Consults: 11/10/22 10:57 Consult to Hospitalist Routine Consulting Provider: Hospitalist Reason For Exam: Routine medical management DS: Diagnosis Discharge Diagnosis (1) Status post total right knee replacement: Status: Acute DS: Summary Hospital Course Hospital Course: The patient underwent a successful right total knee arthroplasty, they were transferred to PACU and then to the floor to recover. During their stay, their vitals were stable, afebrile at 98.6. Labs were unremarkable, H/H 10.0/12.0. POD 1 they were started on Lopvenox for DVT ppx, they also received Physical Therapy services twice a day. Prior to discharge, their dressing was changed, incision clean dry and intact, new Aquacel dressing applied and the plan was to be discharged home with VNA services. Time Spent with Patient Time attestation: Total time managing care of this patient today ____ minutes. Discharge coordination time: Less than 30 minutes Quality: Safe Use of Opioids Does Pt have an Active Cancer Diagnosis on the Problem List?: No Quality: Stroke Does the patient have a stroke diagnosis?: No Physical Exam Vital Signs: Vital Signs: Last Vital Signs Temp 97.0 F 11/12/22 07:28 Pulse 85 11/12/22 07:28 Resp 18 11/12/22 07:28 BP 126/61 11/12/22 07:28 Pulse Ox 93 11/12/22 07:28 O2 Del Method Room Air 11/12/22 07:28 O2 Flow Rate 2.0 11/10/22 11:51 BMI result Body Mass Index 39.1 Const: General: cooperative, healthy appearing and no acute distress Resp: Effort & Inspection: normal respiratory effort and able to speak in complete sentences Cardio: Rate: regular rate Peripheral pulses: Peripheral pulses 2+ throughout GI: Palpation (GI): Soft to palpation Skin: Lesions: no lesions Rashes: no rashes Extrem: Other: Right knee incision site is c/d/i. Courtney intact. Able to dorsiflex and plantarflex. Sensation intact. New Aquacel dressing applied. DS: Data Data Completed and Pending Pending studies at discharge: Pending at discharge 11/10/22 09:07 Surgical [PTH] Routine Labs on day of discharge: Laboratory Results - last 24 hr 11/12/22 11/12/22 04:59 04:59 WBC 10.0 RBC 4.15 L Hgb 12.0 Hct 36.6 L MCV 88.2 MCH 28.9 MCHC 32.8 RDW 13.6 Plt Count 195 MPV 10.1 Immature Gran % (Auto) 0.4 Neut % (Auto) 72.2 Lymph % (Auto) 17.1 L [place] % (Auto) 9.7 Eos % (Auto) 0.3 Baso % (Auto) 0.3 Lymph # (Auto) 1.7 [place] # (Auto) 1.0 Eos # (Auto) 0.0 Baso # (Auto) 0.0 Abs Immat Gran (auto) 0.04 H Absolute Neuts (auto) 7.2 Absolute Nucleated RBC 0.000 Nucleated RBC % (auto) 0.0 Sodium 141 Potassium 4.3 Chloride 105 Carbon Dioxide 27 Anion Gap 13 BUN 9 Creatinine 0.76 Estim Creat Clear Calc 81.3 Estimated GFR > 60 Fasting Glucose 100 H Calcium 8.3 L Discharge Plan Discharge Anticipated Discharge Date/Time: 11/12/22 12:00 Patient Disposition: Home Health Service Discharge Diagnosis: s/p RTKA Referrals: Bisi Garner PA-C [Physician Labor Expediter] - 11/25/22 2:00 pm Po,Immanuel Abbott MD [Primary Care Provider] - 1 Week Discharge Medications: New enoxaparin 40 mg/0.4 mL Syringe 40 mg subcut Q24H 42 Days Qty: 16.8 0RF celecoxib 200 mg Capsule 200 mg PO BID 30 Days Qty: 60 0RF sennosides [Senna Lax] 8.6 mg Tablet 17.2 mg PO BEDTIME PRN (Reason: Constipation) 30 Days Qty: 30 0RF acetaminophen 325 mg Tablet 650 mg PO Q6H PRN (Reason: Pain, Mild (Pain Scale 1-3)) 30 Days Qty: 240 0RF oxycodone 5 mg Tablet 10 mg PO Q4H PRN (Reason: Pain, Moderate (Pain Scale 4-6) 7 Days Qty: 42 0RF Rx Instructions: Partial Fill upon patient request. Continued bupropion HCl 300 mg tablet extended release 24 hr 300 mg PO QAM 90 Days Qty: 90 3RF lisinopril 40 mg tablet 40 mg PO DAILY Qty: 90 0RF (DME) walker Misc See Rx Instructions .MEDSUPPLY Qty: 1 0RF Rx Instructions: Folding Front wheeled walker acetaminophen 650 mg Tablet Extended Release 650 mg PO Q12H PRN (Reason: Pain) Nicoderm duloxetine 30 mg capsule,delayed release(DR/EC) 30 mg PO DAILY Qty: 30 2RF lidocaine [Aspercreme (lidocaine)] 4 % adhesive patch,medicated 1 patch topical DAILY PRN (Reason: pain) Qty: 30 1RF ropinirole 1 mg tablet 1 mg PO TID 30 Days Qty: 90 3RF Discharge Orders: Discharge Order (Routine); Ordered 11/12/22 Ordered By: Amelia Navarro Diet: Advance to usual diet Activity on Discharge: Use cane or walker Stand Alone Forms: Patient Portal Discharge page Care Plan Goals: restore fxn to rt knee Health Concerns: None Plan of Treatment: Physical Therapy for ROM 0-120, quad strength, gait training. Use walker for ambulation Limit stair climbing, No shower, No tub bath, No driving Continue anticoagulant Keep Aquacel dressing clean, dry and intact. Follow up with orthopedics in 2 weeks Assessment: Stable for d/c
--- NOTE | 2022-11-12 07:57 | P.F2F_ITS ---
Service Date Service Date: 11/12/22 Encounter Date of encounter: 11/12/22 Reasons for Services Signs and symptoms assessed: s/p RTKA. Pt. is considered homebound due to recent surgery. Unable to drive, poor balance, poor gait mechanics. Reason for physical therapy: home safety and mobility, therapeutic exercises, restore joint function, gait/transfer training, assess need for DME and ADL training Homebound: Leaving the home is medically contraindicated at this time without the asist of a device and/or another person due th the listed conditions above and below. Reason homebound: unsteady gait / fall risk, leg weakness, pain with ambulation, pain with transfers, poor balance / fall risk and unable to drive Certification: Based on the above findings, I certify that this patient is confined to the home and needs intermittent detention care, physical therapy and/or speech therapy, or continues to need occupational therapy. The patient is under my care, and I have initiated the establishment of the plan of care. The patient will be followed by a physician who will periodically review the plan of care. Time Spent With Patient Time: Total time managing care of this patient today ____ minutes.
--- NOTE | 2022-11-12 08:31 | MHC.CM.PN ---
PT WILL DC HOME TODAY WITH [facility] TO TRANSPORT
[2022-11-12] MEDS: HYDROmorphone HCl 0.5 MG/0.5 ML SYRINGE 0.25 MG IVPUSH (09:42)
== END 2022-11-12 09:58 | disposition home health service (06) | DRG 470 ==
LOC: HO.SSSA 06:05 → HO.S3 10:33
PROVIDERS: Physician Assistant; Admitting Provider Physician Assistant; PCP Internal Medicine; Visit Provider Orthopaedic Surgery
PROC: 0SRC0JA Replacement of Right Knee Joint with Synthetic Substitute, Uncemented, Open Approach (ICD-10-PCS; CPT 27447; principal; 2022-11-10 07:30)
DX: M17.11 Unilateral primary osteoarthritis, right knee (principal); J44.9 Chronic obstructive pulmonary disease, unspecified; K21.9 Gastro-esophageal reflux disease without esophagitis; E78.00 Pure hypercholesterolemia, unspecified; Z20.822 Contact with and (suspected) exposure to COVID-19; Z88.8 Allergy status to other drugs, medicaments and biological substances; Z79.899 Other long term (current) drug therapy
CPT/HCPCS: 36415; 73560; 80048; 85014; 85018; 85025; 86850; 86900; 86901; 87635; 87640; 87641; 88305; 88311; 97110; 97116; 97162; C1776; J0131; J0690; J1170; J1650; J2250; J2370; J2405; J2795; J3010

== ENCOUNTER → 2022-11-25 14:04 | Outpatient (BNVA) | payer MEDICARE, OTHER, MEDICAID, SELFPAY | PROVIDERS: PCP Internal Medicine; Visit Provider Physician Assistant | DX: Z47.1 Aftercare following joint replacement surgery (principal); Z96.651 Presence of right artificial knee joint | CPT/HCPCS: 99212 ==

== ENCOUNTER 2022-12-23 15:03 | Outpatient (REF) | payer MEDICARE, OTHER, MEDICAID, SELFPAY ==
--- NOTE | ~2022-12-23 | XR_ITS ---
EXAMINATION: AP bilateral knee standing, right knee and AP pelvis. CLINICAL INDICATIONS: Pain. COMPARISON: Right knee 11/10/2022. TECHNIQUE: AP bilateral knee standing 1 view. AP pelvis one view. Right knee 2 views. FINDINGS: AP bilateral knee: There is a total right knee prostheses in the satisfactory alignment unchanged to 11/10/2022 exam. There is loss of medial and lateral compartment joint space and intercondylar eminence spurring. No loose body seen. The soft tissues are unremarkable. Right knee: There is a total right knee prosthesis with prosthetic components in satisfactory alignment. There is no prosthetic loosening. No soft tissue abnormality. AP pelvis: There is mild reduction in bilateral hip joint space but no bony erosive changes seen. SI joints are symmetric and normal. No fracture, dislocation or bony abnormality. XR/XR pelvis 1-2V IMPRESSION: 1. Total right knee prosthesis with prosthetic components in satisfactory alignment. There is no prosthetic loosening. 2. Mild degenerative changes medial and lateral compartment left knee. 3. Mild degenerative changes bilateral hip joints.
--- NOTE | ~2022-12-23 | XR_ITS ---
EXAMINATION: AP bilateral knee standing, right knee and AP pelvis. CLINICAL INDICATIONS: Pain. COMPARISON: Right knee 11/10/2022. TECHNIQUE: AP bilateral knee standing 1 view. AP pelvis one view. Right knee 2 views. FINDINGS: AP bilateral knee: There is a total right knee prostheses in the satisfactory alignment unchanged to 11/10/2022 exam. There is loss of medial and lateral compartment joint space and intercondylar eminence spurring. No loose body seen. The soft tissues are unremarkable. Right knee: There is a total right knee prosthesis with prosthetic components in satisfactory alignment. There is no prosthetic loosening. No soft tissue abnormality. AP pelvis: There is mild reduction in bilateral hip joint space but no bony erosive changes seen. SI joints are symmetric and normal. No fracture, dislocation or bony abnormality. XR/XR knee RT 2V IMPRESSION: 1. Total right knee prosthesis with prosthetic components in satisfactory alignment. There is no prosthetic loosening. 2. Mild degenerative changes medial and lateral compartment left knee. 3. Mild degenerative changes bilateral hip joints.
--- NOTE | ~2022-12-23 | XR_ITS ---
EXAMINATION: AP bilateral knee standing, right knee and AP pelvis. CLINICAL INDICATIONS: Pain. COMPARISON: Right knee 11/10/2022. TECHNIQUE: AP bilateral knee standing 1 view. AP pelvis one view. Right knee 2 views. FINDINGS: AP bilateral knee: There is a total right knee prostheses in the satisfactory alignment unchanged to 11/10/2022 exam. There is loss of medial and lateral compartment joint space and intercondylar eminence spurring. No loose body seen. The soft tissues are unremarkable. Right knee: There is a total right knee prosthesis with prosthetic components in satisfactory alignment. There is no prosthetic loosening. No soft tissue abnormality. AP pelvis: There is mild reduction in bilateral hip joint space but no bony erosive changes seen. SI joints are symmetric and normal. No fracture, dislocation or bony abnormality. XR/XR knee standing BI IMPRESSION: 1. Total right knee prosthesis with prosthetic components in satisfactory alignment. There is no prosthetic loosening. 2. Mild degenerative changes medial and lateral compartment left knee. 3. Mild degenerative changes bilateral hip joints.
== END 2022-12-23 15:04 | disposition home or self-care (01) ==
LOC: HO.HOSX 15:03
PROVIDERS: Visit Provider Physician Assistant
DX: Z47.1 Aftercare following joint replacement surgery (principal); Z96.651 Presence of right artificial knee joint; M25.551 Pain in right hip; M25.552 Pain in left hip
CPT/HCPCS: 72170; 73560; 73565; 99212

== ENCOUNTER 2023-01-19 10:00 | Outpatient (RCR) | payer MEDICARE, OTHER, MEDICAID, SELFPAY ==
--- NOTE | 2022-11-25 15:19 | MHC.PT.EP ---
[facility] [place] Office [place] Office [place] Office [address] Amber Felton [address] [phone] F: [phone] F: [phone] F: [phone] F: [phone] Physical Therapy Plan of Care Date of Evaluation: Date of Surgery: 11/10/22 Diagnosis: POST- OP Rt TKA Assessment: 62 YO FEMALE REF TO PT S/P RIGHT TKR ON 11/10/22- SHE NOTES DIFFIC W RESTLESS LEG SYNDROME. SHE RESIDES W HER SPOUSE IN A 2 LEVEL HOME, BEDROOM ON 1ST FLOOR, AND IS CURRENTLY AMB W A W/WALKER . OBJECTIVE FINDINGS: LIMITED AROM Rt KNEE, TIGHT PSOAS MM LEN AND DECR ANKLE DF LEN; DECR STRENGTH IN PROX / LUMBOPELVIC AND Rt LE, POST-OP PAIN IN RIGHT KNEE ,AND HEALING ANT Rt KNEE INCISION. FUNCTIONALLY, Pt IS AMB W A W/WALKER- SHE HAS COMPENSATORY GAIT, MODIFIED STAIR MGMT, DECR STANDING, SLEEPING, AND DECR DEJA TO ADLs REQ Rt KNEE FLEX. Pt IS A VERY GOOD PT CANDIDATE TO GUIDE HER IN HER POST-OP TKR COURSE, ADDRESSING THE ABOVE FINDINGS, PAIN MGMT, AND MAXIMIZING FUNCTIONAL INDEPENDENCE. Frequency and Duration: The patient will be seen 2 x WK x 10 WKS Short Term Goals: *Pt'S RIGHT KNEE PAIN DECR TO 2-3/10 *Pt INCREASE Rt KNEE ROM -> 0* EXTEN AND PROGRESSIVELY TO 120* FLEX *INCR FLEXIB IN PSOAS/ CALF MM TO IMPROVE EFFICIENCY OF GAIT ON LEVEL AND STAIRS *REDUCE Rt LE EDEMA AND MONITOR/ ADDRESS SCAR MOB NEEDED Mcfp Goals: Pt INDEP W HEP PROGRESSION AND SELF-SX MGMT STRATEGIES IN 10 WKS Pt RESUME REG ADLs EVIDENT W IMPROVED LEFI SCORE IN 10 WKS Pt INCR LE STRENGTH BY 1 GRADE IN 10 WKS Treatment Plan: Modalities to reduce pain, spasms and effusion. Manual therapy to restore motion and function. Therapeutic exercise to improve strength and flexibility. Neuromuscular re-education for posture and balance. Therapeutic activities to return to functional activities of daily living. Electronically signed by: EDIS WASHBURN,PT Please sign and return to therapist. Thank you for your referral.
--- NOTE | 2023-02-25 12:53 | MHC.PT.DC ---
[facility] [place] Office [place] Office [place] Office [address] Amber Felton 140 [facility] [phone] F: [phone] F: [phone] F: [phone] F: [phone] Physical Therapy Discharge Report Diagnosis: POST- OP Rt TKA Date of Surgery: 11/10/22 Date of Evaluation: 11/25/22 Date of Discharge: 02/25/23 Treatments to Date: 11 Cancellations to Date: 4 No Shows to Date: 1 Discharge Status: Improved Function Independent with HEP Patient Elected to Stop Visit Non-compliance Discharge Summary: THE Pt PROGRESSED WELL IN PT , SUPPORTING HER POST-OP COURSE AND ADVANCING HER FUNCTIONAL INDEPENDENCE- SHE CANC AND N0-SHOWED LAST FEW SCHED PT APPTS , AND, THEREFORE, A FORMAL RE-ASSESS WAS NOT PERFORMED. Electronically signed by: EDIS WASHBURN,PT Please sign and return to therapist. Thank you for your referral.
== END 2023-02-25 12:52 | disposition home or self-care (01) ==
LOC: HO.PT 10:00
PROVIDERS: Visit Provider Physician Assistant
DX: M17.11 Unilateral primary osteoarthritis, right knee (principal)
CPT/HCPCS: 97110; 97162

== ENCOUNTER 2023-04-29 14:19 | Outpatient (AMB) | payer MEDICARE, MEDICAID, SELFPAY ==
--- NOTE | 2023-04-29 07:55 | A.OFFVIS_ITS ---
Intake Intake Visit Reasons: LDCT SD Allergies amitriptyline Adverse Reaction (Severe, Verified 02/17/23 12:17) worsening anxiety gabapentin Adverse Reaction (Severe, Verified 02/17/23 12:17) increased anxiety, dyspnea HPI LDCT SD 2 HPI Details Initial visit for this 62yo smoker with a 45PYH. Patient has been smoking since age 12 for 30 years total. She had quit for a period of 20 year and restarted 5 years ago at 1ppd. Max was 1.5ppd, now 1ppd. . Denies marijuana use. Denies second hand smoke exposure. Notes exposure to chemicals like Toluene at work. . Reports family history of lung cancer. Father age 62. Denies personal history of cancers. . Denies chest CT in last year. CT of chest done 12/07/18 noted stable pulmonary nodules. . Denies recent travel outside the [place]. Denies recent respiratory illness or recent hospitalization for respiratory issues. Reports testing positive for COVID. 09/2019 & 01/2023 Denies receiving COVID Vaccine. . Denies fever, chills, new/worsening cough, hemoptysis, hoarseness or dysphagia. Denies significant chest pain, significant dyspnea or unintentional weight loss. Patient Lung Cancer Screening Questionnaire reviewed with patient by provider. . Shared Decision Making Completed. Patient meets criteria. Discussed in detail with patient, the risk vs benefit of LDCT screening. Patient consents to proceed with scan. Discussed smoking cessation. [facility] Medical History (Updated 04/29/23 @ 14:39 by Jocelyn Hills PA-C) Nicotine dependence, cigarettes, uncomplicated Personal history of COVID-19 COPD (chronic obstructive pulmonary disease) Generalized anxiety disorder Insomnia GERD (gastroesophageal reflux disease) Hypercholesterolemia Hypertension Osteoarthritis of right knee Osteoarthritis of right hip Surgical History (Updated 03/25/23 @ 12:35 by Jocelyn Hills PA-C) History of total right knee replacement History of inguinal hernia repair History of carpal tunnel release of both wrists History of section Family History Mother No problems noted. Father Myocardial infarct Lung cancer Sister Myocardial infarct CVA (cerebral vascular accident) Ovarian cancer Brother CVA (cerebral vascular accident) Social History (Updated 04/29/23 @ 14:39 by Jocelyn Hills PA-C) Household Members: Family Housing: House Are you a primary doggy daycare activities director to a significant other at home: No Do you presently have visiting nurse or other home services: No Alcohol intake: current Alcohol intake frequency: holidays/special occasions only Alcohol type: wine Patient Tobacco Use Status: Never used Tobacco Tobacco use type: Cigarette Cigarettes Per Day: 10 Years Smoked: (onset 12yo, x 30yrs max 1.5ppd, now 1ppd - 45pyh) e-Cigarette/Vaping Use: Never Used Second Hand Smoke Exposure: No service: No Current occupational status: disabled Current occupation: Right handed Cognitive needs: No Hearing needs: No Vision needs: Yes Assessment & Plan Assessment & Plan (1) Nicotine dependence, cigarettes, uncomplicated: Comment: (current smoker onset 12yo, x 30yrs max 1.5ppd, now 1ppd - 45pyh) Code(s): F17.210 - Nicotine dependence, cigarettes, uncomplicated Plan: - SDM visit completed today in office. - Patient meets criteria for LDCT for lung cancer screening purposes and is asymptomatic. - Smoking cessation counseling offered. Patients can always call [phone]. - Will arrange for a LDCT scan of the chest for screening purposes at [facility]. - Risks, benefits, and alternatives were discussed in detail and the patient agrees to proceed. - Risks discussed include but are not limited to: radiation exposure, anxiety during testing and while awaiting results, false negatives, false positives and possibility of additional intervention such as further imaging or surgical procedures for benign disease. - Benefits are obviously detection of lung cancer at an early stage which can lead to improved outcomes. - Discussed the importance of screening program compliance with adherence to yea rly LDCT scan as scheduled - or sooner interval scans for personalized screening regimen. - Discussed follow up plan. Our office will send a letter discussing results and if needed set up phone call and office visit based on CT findings. - Patient educated on results categorization and the management decisions for suspicious findings potentially found on the screening LDCT scan. Any patient with a Lung RADS score of 3 or 4 will be reviewed by a multidisciplinary team at [facility] to form a plan of action in regards to scan findings. - If further work up is warranted for a suspicious lung finding this will be followed by the Lung Cancer Screening program in conjunction with the Thoracic Surgery Department at [facility]. - A copy of the office note and LDCT will be sent to the patient's PCP - as well as documentation on any associated further plans of care. - Incidental findings on LDCT are the PCP's responsibility. These findings are indicated with an S finding on the LDCT Assessment. A note discussing the findings will be sent to the PCP who is then responsible for further management. - All questions answered.? Coding Level of Care Code Lung Cancer Screening G0296 Diagnoses Nicotine dependence, cigarettes, uncomplicated F17.210
== END 2023-04-29 14:32 | disposition home or self-care (01) ==
PROVIDERS: PCP Internal Medicine; Visit Provider Physician Assistant Medical
DX: F17.210 Nicotine dependence, cigarettes, uncomplicated (principal)
CPT/HCPCS: G0296

== ENCOUNTER 2023-04-29 14:39 | Outpatient (REF) | payer MEDICARE, MEDICAID, SELFPAY ==
--- NOTE | ~2023-04-29 | CT_ITS ---
EXAMINATION: CT CHEST LOW-DOSE SCREENING WITHOUT CONTRAST HISTORY: Asymptomatic patient meeting criteria for lung screening. PATIENT PACK-YEAR HISTORY: 14 Current Smoker: Yes If former smoker, years since quitting: COMPARISON: 12/07/2018 TECHNIQUE: Multidetector volumetric non-contrast CT imaging of the chest was performed using low dose screening CT technique. Axial thin section 0.625 mm reformations in soft tissue and lung windows were obtained. Sagittal and coronal reformations were obtained. Axial MIP images were also created and reviewed. RECONSTRUCTED WIDTH: 1.25 mm x 1.25 mm TOTAL EXAM DLP: 55.4 mGy-cm CTDIvol: 1.74 mGy FINDINGS: LUNGS: Mild centrilobular emphysema. 2 mm nodule right upper lobe on image 97. 5 mm nodule along the left major fissure on image 248. 6 mm right lower lobe nodule on image 269. 3 mm nodule left lower lobe on image 375. No focal consolidation. Central airways are patent. PLEURA: No pleural effusion. LYMPH NODES: No bulky mediastinal, hilar or axillary lymphadenopathy. MEDIASTINUM: Great vessels are of normal caliber. Heart size is normal. No pericardial effusion. CORONARY ARTERY CALCIFICATIONS: Mild. CHEST WALL/BREASTS: No acute abnormality. UPPER ABDOMEN: This study was performed without contrast and with lower than standard dose, reducing the sensitivity for detection of small lesions in the upper abdomen. Probable right adrenal nodule. OSSEOUS STRUCTURES: No destructive bone lesions. CT/CT lung screening IMPRESSION: Bilateral pulmonary nodules measuring up to 6 mm. LUNG-RADS CATEGORY ASSESSMENT: 2. Benign appearance or behavior. Nodules with a very low likelihood of becoming a clinically active cancer due to size or lack of growth. Continue annual screening with low-dose CT in 12 months. Probability of malignancy less than 1%. INCIDENTAL FINDINGS (S CATEGORY): Finding: No incidental findings. Significance category: Normal or normal variant. RECOMMENDATION: Low dose lung CT. overall in 6 months. Visual estimate of coronary calcified plaque burden: Mild. However, this exam cannot replace a dedicated cardiac CT calcium score for accurate assessment. LUNG-RADS CATEGORY: 2 -- BENIGN
== END 2023-04-29 14:40 | disposition home or self-care (01) ==
LOC: HO.CT 14:39
PROVIDERS: PCP Internal Medicine; Visit Provider Physician Assistant Medical
DX: Z12.2 Encounter for screening for malignant neoplasm of respiratory organs (principal); F17.210 Nicotine dependence, cigarettes, uncomplicated
CPT/HCPCS: 71271; G0296

== ENCOUNTER 2023-10-03 13:54 | Outpatient (AMB) | payer MEDICARE, MEDICAID, SELFPAY ==
[2023-10-03 13:55] VITALS: BP 142/88; PULSE 76; O2SAT 96; BMI 38.8
--- NOTE | 2023-10-03 13:55 | A.OFFPC_ITS ---
Vital Signs 10/03/23 13:55 Height 5 ft 2 in Weight 212 lb 0.8 oz BMI 38.8 BP 142/88 H Blood Pressure Location Lt brachial Position Sitting Pulse 76 Pulse Source Pulse Oximeter Pulse Oximetry (%) 96 Oxygen Delivery Method Room Air Intake Visit Reasons: Med review Intake Note: Patient is here to follow up on medication review Hims Manager Required: No Allergies amitriptyline Adverse Reaction (Severe, Verified 10/03/23 14:00) worsening anxiety gabapentin Adverse Reaction (Severe, Verified 10/03/23 14:00) increased anxiety, dyspnea Medication List - Last Reconciled 10/03/23 by Immanuel Sims MD acetaminophen 650 mg (2 x 325 mg) PO Q6H PRN 30 days albuterol sulfate 90 mcg/actuation (Ventolin HFA) 2 puffs inhalation Q4-6H PRN budesonide-formoterol 160-4.5 mcg/actuation (Symbicort) 2 puffs inhalation Q12H bupropion HCl 300 mg PO QAM 90 days duloxetine 30 mg PO DAILY 90 days hydrochlorothiazide 12.5 mg PO DAILY lidocaine 4% (Aspercreme (lidocaine)) 1 patch topical DAILY PRN lisinopril 40 mg PO DAILY [Nicoderm ] ropinirole 1 mg PO TID 30 days sennosides (Senna Lax) 17.2 mg (2 x 8.6 mg) PO BEDTIME PRN 30 days walker Folding Front wheeled walker Tobacco use date assessed: 10/03/23 Fall risk assessment: No Falls in past year Last assessed Fall Risk: 10/03/23 Dental Screening Dental Screen Date: 10/03/23 HPI Med review HPI Details 63-year-old obese female smoker with gen eralized anxiety disorder GERD hypercholesterolemia hypertension COPD coming in for follow-up. Last seen in September 2022. Patient's mammogram is up-to-date and due this month.. Because of her smoking patient had a CT scan done in April 2023 noted bilateral pulmonary nodule 6 mm and this is kept an eye on advise 6 months. 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 Patient had a right knee arthroplasty in October 2022. dysphagia few weeks ago last month but it resolved (after 4 days), ER visit due to hypoxia states . O2 sats 93 sitting O2 on walking. sleepy all day sleeping on watching, sleepy after eating and nap in afternoon [facility] Medical History (Updated 10/03/23 @ 14:23 by Immanuel Sims MD) Nicotine dependence, cigarettes, uncomplicated Personal history of COVID-19 COPD (chronic obstructive pulmonary disease) Generalized anxiety disorder Insomnia GERD (gastroesophageal reflux disease) Hypercholesterolemia Hypertension Osteoarthritis of right knee Osteoarthritis of right hip Surgical History (Updated 03/25/23 @ 12:35 by Jocelyn Hills PA-C) History of total right knee replacement History of inguinal hernia repair History of carpal tunnel release of both wrists History of section Family History Mother No problems noted. Father Myocardial infarct Lung cancer Sister Myocardial infarct CVA (cerebral vascular accident) Ovarian cancer Brother CVA (cerebral vascular accident) Social History (Updated 04/29/23 @ 14:39 by Jocelyn Hills PA-C) Household Members: Family Housing: House Are you a primary health care analyst to a significant other at home: No Do you presently have visiting nurse or other home services: No Alcohol intake: current Alcohol intake frequency: holidays/special occasions only Alcohol type: wine Patient Tobacco Use Status: Never used Tobacco Tobacco use type: Cigarette Cigarettes Per Day: 10 Years Smoked: (onset 12yo, x 30yrs max 1.5ppd, now 1ppd - 45pyh) e-Cigarette/Vaping Use: Never Used Second Hand Smoke Exposure: No service: No Current occupational status: disabled Current occupation: Right handed Cognitive needs: No Hearing needs: No Vision needs: Yes Questionnaire Thrive Questionnaire Date Thrive assessed: 10/19/22 AUDIT C Alcohol Use Questionnaire (AUDIT-C) 1. How often do you have a drink containing alcohol?: Never 2. How many drinks containing alcohol do you have on a typical day when you are drinking?: 1 or 2 3. How often do you have six or more drinks on one occasion?: Never Total Score: 0 Score Reviewed/Action Taken: No SHAN-7 AMB Questionnaire SHAN-7 Date SHAN - 7 assessed: 10/03/23 Source: Developed by Drs. Elpidio Kim, Annika Farah, Adi Arboleda and colleagues, with an educational jacob from [employer]. Physical exam (Primary Care) Vital Signs: Last Vital Signs Pulse 76 10/03/23 13:55 BP 142/88 H 10/03/23 13:55 Pulse Ox 96 10/03/23 13:55 Oxygen Delivery Method Room Air 10/03/23 13:55 BMI result Body Mass Index 38.8 Tobacco/Smoking Status: Tobacco use Status Tobacco use date assessed 10/03/23 10/03/23 13:56 Patient Tobacco Use Status Never used Tobacco 10/03/23 13:56 Tobacco use type Cigarette 10/03/23 13:56 e-Cigarette/Vaping Use Never Used 10/03/23 13:56 Thrive Assessment: Date of Thrive Assessment Date Thrive assessed 10/19/22 10/03/23 13:56 Const General: alert; No acute distress Eyes Conjunctivae: conjunctivae normal Resp Auscultation: clear to auscultation bilaterally Cardio Rate: regular rate Rhythm: regular rhythm GI Inspection: Yes normal to inspection Extrem General: Yes normal to inspection and No edema Office Procedures Flu Questionnaire Does the patient have a severe egg allergy?: No Does the patient have severe life threatening allergies?: No Does the patient have a fever or illness today?: No Has the patient ever had Guillain-[place] Syndrome?: No Has the patient ever had any past reaction to a flu shot?: No Immunizations flu vacc [id number] 6mos up(PF) 60 mcg(15 mcgx4)/0.5 mL IM syringe Performing Provider: Immanuel Sims MD Performing Location: [facility] [place] [facility] Administered by: JUAN ANTONIO Wills on 10/03/23 14:47 Dose Route Admin Location Dispensed Lot Number Expiration Date FORMERLY NAMED [facility] Planning Official 0.5 mL IM Left Deltoid 0.5 mL [id number] 02/19/24 99166-615-01 [employer] VIS Given Date VIS Provided VIS Publication Date 10/03/23 Single Vaccine 21 Eligibility Eligibility Date Funding Source Not VFC Eligible 10/03/23 Private pneumoc 20-kristopher conj-dip cr(PF) 0.5 mL IM syringe Performing Provider: Immanuel Sims MD Performing Location: [facility] [place] [facility] Administered by: JUAN ANTONIO Wills on 10/03/23 14:47 Dose Route Admin Location Dispensed Lot Number Expiration Date FORMERLY NAMED [facility] Planning Official 0.5 mL IM Left Deltoid 0.5 mL [id number] 12/20/24 6758-3552-67 [employer] ([email or web address]) VIS Given Date VIS Provided VIS Publication Date 10/03/23 Single Vaccine 21 Eligibility Eligibility Date Funding Source Not VF Eligible 10/03/23 Private Assessment and Plan Assessment & Plan (1) Hypertension: Code(s): I10 - Essential (primary) hypertension Plan: Continue with blood pressure medication. Decrease salt intake and exercise presently on lisinopril 40 mg once a day (2) Hypercholesterolemia: Code(s): E78.00 - Pure hypercholesterolemia, unspecified Plan: Avoid fried foods, chicken skin, eggs, butter margarine, pastries and meat. Be it pork or beef they have a lot of cholesterol LDL goal of less than 130 and triglyceride of less than 150 patient's last blood work was 2021 (3) COPD (chronic obstructive pulmonary disease): Code(s): J44.9 - Chronic obstructive pulmonary disease, unspecified Plan: Strongly advised to stop smoking! Continue with inhaler (4) Colonoscopy refused: Code(s): Z53.20 - Procedure and treatment not carried out because of patient's decision for unspecified reasons (5) Obesity: Code(s): E66.9 - Obesity, unspecified Plan: Diet and exercise (6) Chronic diarrhea: Comment: Labs, will review may add EGD Code(s): K52.9 - Noninfective gastroenteritis and colitis, unspecified (7) Nicotine dependence, cigarettes, uncomplicated: Comment: (current smoker onset 12yo, x 30yrs max 1.5ppd, now 1ppd - 45pyh) Code(s): F17.210 - Nicotine dependence, cigarettes, uncomplicated Plan: Patient is strongly advised to stop smoking (8) Pulmonary nodule: Comment: April 2023 CT scan Code(s): R91.1 - Solitary pulmonary nodule Plan: Patient is enrolled in the lung cancer screening program last CT scan April 2023 bilateral pulmonary nodule 6 mm. (9) Dysphagia: Code(s): R13.10 - Dysphagia, unspecified (10) Hypersomnia: Code(s): G47.10 - Hypersomnia, unspecified Orders: Orders FL barium swallow Today R13.10 - Dysphagia, unspecified FL upper GI series Today R13.10 - Dysphagia, unspecified RT home sleep study Today G47.10 - Hypersomnia, unspecified Influenza [id number] Immunization Today Z23 - Encounter for immunization Pneumococcal 20 Immunization Today Z23 - Encounter for immunization Medications: New budesonide-formoterol 160-4.5 mcg/actuation (Symbicort) 2 puffs inhalation Q12H 10.2 grams 5RF J44.9 - Chronic obstructive pulmonary disease, unspecified hydrochlorothiazide 12.5 mg PO DAILY 90 tabs 2RF I10 - Essential (primary) hypertension Refilled albuterol sulfate 90 mcg/actuation (Ventolin HFA) 2 puffs inhalation Q4-6H PRN 8.5 grams 0RF shortness of breath or wheezing J44.9 - Chronic obstructive pulmonary disease, unspecified Coding Level of Care Code Est Pt Level 4 (07667) Diagnoses Hypertension I10 Hypercholesterolemia E78.00 COPD (chronic obstructive pulmonary disease) J44.9 Colonoscopy refused Z53.20 Obesity E66.9 Chronic diarrhea K52.9 Nicotine dependence, cigarettes, uncomplicated F17.210 Pulmonary nodule R91.1 Dysphagia R13.10 Hypersomnia G47.10
== END 2023-10-03 16:05 | disposition home or self-care (01) ==
PROVIDERS: PCP Internal Medicine; Visit Provider Internal Medicine
DX: J44.9 Chronic obstructive pulmonary disease, unspecified (principal); E66.9 Obesity, unspecified; Z68.38 Body mass index [BMI] 38.0-38.9, adult; Z23 Encounter for immunization; I10 Essential (primary) hypertension; E78.00 Pure hypercholesterolemia, unspecified; Z53.20 Procedure and treatment not carried out because of patient's decision for unspecified reasons; K52.9 Noninfective gastroenteritis and colitis, unspecified; F17.210 Nicotine dependence, cigarettes, uncomplicated; R91.1 Solitary pulmonary nodule; R13.10 Dysphagia, unspecified; G47.10 Hypersomnia, unspecified
CPT/HCPCS: 90471; 90677; 90686; 99214

== ENCOUNTER 2023-11-14 07:22 | Outpatient (REF) | payer MEDICARE, SELFPAY ==
--- NOTE | ~2023-11-14 | CT_ITS ---
EXAMINATION: CT CHEST SCREENING CLINICAL INFORMATION: Solitary pulmonary nodule. Current smoker at 1 pack per day with 16 pack years. COMPARISON: CT lung screening 04/29/2023. TECHNIQUE: Multidetector volumetric CT imaging of the chest is performed without contrast using low dose technique. Additional 2D coronal and sagittal reformatted images and axial 3D maximum intensity projection (MIP) images are generated on the CT workstation. This CT examination was performed using dose optimization techniques as appropriate, variously including the following: *Automated exposure control *Adjustment of mA and/or kV according to patient size (this includes techniques or standardized protocols for targeted exams where dose is matched to indication/reason for exam; i.e. extremities or head) *Use of iterative reconstruction technique DLP: 155 mGy-cm FINDINGS: PULMONARY NODULES: Multiple pulmonary nodules are seen and retana images of all have been saved. The largest measures 5 mm in the left lower lobe along the major fissure (5:300) and 6 mm in a subpleural location in the right lower lobe (5:329). Compared to the prior study from just over 6 months ago, there has been no interval change. LUNGS: Emphysematous changes are present with mild bronchial thickening. MEDIASTINUM: The mediastinum is normal. CORONARY ARTERY CALCIFICATION: Mild. PLEURA: There is no pleural effusion. No pleural mass or thickening. AXILLA: No lymphadenopathy. UPPER ABDOMEN: A small hiatal hernia is present. OSSEOUS STRUCTURES: Unremarkable. CT/CT lung screen follow up IMPRESSION: Benign-appearing pulmonary nodules are stable. ASSESSMENT: Lung-RADS category 2: Benign RECOMMENDATION: Routine annual low-dose CT screening in 12 months.
== END 2023-11-14 07:23 | disposition home or self-care (01) ==
LOC: HO.CT 07:22
PROVIDERS: PCP Internal Medicine; Visit Provider Physician Assistant Medical
DX: R91.1 Solitary pulmonary nodule (principal)
CPT/HCPCS: 71250

== ENCOUNTER → 2023-11-15 13:53 | Outpatient (REF) | payer MEDICARE, SELFPAY | LOC: HO.SL 13:53 | PROVIDERS: PCP Internal Medicine; Visit Provider Internal Medicine | DX: G47.10 Hypersomnia, unspecified (principal); R06.83 Snoring | CPT/HCPCS: 95806 ==

== ENCOUNTER → 2023-11-15 14:04 | Outpatient (BNV) | payer MEDICARE, SELFPAY | PROVIDERS: PCP Internal Medicine; Visit Provider Internal Medicine | DX: R06.83 Snoring (principal) | CPT/HCPCS: 95806 ==

== ENCOUNTER 2023-12-06 09:22 | Outpatient (REF) | payer MEDICARE, SELFPAY ==
--- NOTE | ~2023-12-06 | FL_ITS ---
EXAMINATION: XR FLUOROSCOPY UPPER GI WITH AIR CLINICAL INFORMATION: Dysphagia. Reflux. History of smoking. COMPARISON: 06/23/2017. 04/15/2011. TECHNIQUE: Fluoroscopic air contrast upper GI examination was performed utilizing standard techniques with thin and thick barium and effervescent granules. Numerous spot images were obtained. FINDINGS: Lateral cine images of the oropharynx and hypopharynx demonstrate normal swallow mechanism with normal epiglottic inversion and soft palate elevation. No tracheal penetration, glottic or subglottic aspiration identified. Mild nasopharyngeal reflux present. Hypopharyngeal structures appear normal without evidence of mass or diverticulum. There is mild cricopharyngeal achalasia present (RF 1-13). Dual and single contrast images of the esophagus demonstrate normal caliber, contour. There is felinization of the mid and lower esophageal mucosa. No evidence of stricture, mass, or ulcerations identified. Esophageal peristalsis is mildly disorganized. Small type I hiatus hernia. No significant gastroesophageal reflux was seen during the course of the examination and on reflux views. Dual contrast and single contrast images of the stomach demonstrated a normal contour. There are multiple small tiny areas of contrast pooling in the fundus and body of the stomach that may represent small superficial aphthous ulcers. No evidence of masses. Contrast freely passed into the gastric antrum and duodenal bulb without delay. Single and air-contrast images of the duodenal bulb demonstrate no abnormality. The duodenal sweep has a normal appearance, course, and mucosal fold appearance. Prominent duodenal diverticulum in segment 2, previously seen. No malrotation. The imaged proximal jejunum has a normal fold pattern and caliber. FLUOROSCOPY TIME: 4 minutes 41 seconds Number of Spot Images: 9 Number of Cine: 12 DOSE AREA PRODUCT: 3499 uGy-m2 (microgray-meter squared) FL/FL upper GI w air w Ba Swallow IMPRESSION: 1. Mild cricopharyngeal achalasia. 2. Felinization of the mid and lower esophageal mucosa. This is a benign finding that likely is associated gastroesophageal reflux. 3. Mildly disorganized esophageal peristalsis. Small type I hiatus hernia. 4. Suspect gastroesophageal reflux, however it was not demonstrated during this examination. 5. Multiple small tiny areas of contrast pooling in the fundus and body the stomach that may represent small superficial aphthous ulcers. Recommend correlation EGD. 6. Prominent duodenal diverticulum in the second segment, unchanged from prior exams. This procedure was performed by Alex Romero PA-C, and supervised by Dr. Mirza
[2023-12-06 10:11] LABS: MANUAL DIFF FLAG NO
[2023-12-06 10:34] LABS: Basophils Percent Auto 0.6 % (0-2); Eosinophils Absolute Auto 0.1 X10*3/uL (0.0-0.4); Hematocrit 44.1 % (37.0-47.0); Hemoglobin 14.2 g/dl (12.0-16.0); Imm Gran Abs Auto 0.01 X10*3/uL (0.00-0.03); Imm Gran Pct Auto 0.1 % (0.0-0.4); Lymphocytes Absolute Auto 2.8 X10*3/uL (1.2-4.9); Lymphocytes Percent Auto 40.5 % (20-40); Mean Corpuscular HGB Conc 32.2 g/dl (31.0-35.0); Mean Corpuscular Hemoglobin 28.7 pg (27.0-33.0); Mean Corpuscular Volume 89.1 fL (80.0-98.0); Mean Platelet Volume 9.6 fL (9.4-12.3); Monocytes Absolute Auto 0.4 X10*3/uL (0.1-1.2); Monocytes Percent Auto 5.8 % (2-11); Neutrophils Absolute Auto 3.5 x10*3/uL (2.0-8.3); Platelet Count 255 X10*3/uL (160-400); Red Blood Count 4.95 X10*6/uL (4.20-5.50); Red Cell Distribution Width 14.4 % (11.0-16.0); White Blood Count 6.9 X10*3/uL (4.8-10.8)
[2023-12-06 11:28] LABS: Alanine Aminotransferase 13 U/L (0-31); Albumin Level 4.2 g/dL (3.5-5.0); Alkaline Phosphatase 96 U/L (39-117); Anion Gap 11 (12-20); Aspartate Amino Transferase 14 U/L (5-31); Bilirubin Total 0.3 mg/dL (0.0-1.0); Blood Urea Nitrogen 19 mg/dL (9-16); Calcium 9.7 mg/dL (8.4-10.2); Carbon Dioxide 31 mmol/L (22-29); Chloride 105 mmol/L (96-108); Cholesterol 299 mg/dL (<200); Estimated Glomerular Filt Rate > 60; Glucose Random 95 mg/dL (60-115); HDL Cholesterol 48 mg/dL (>40); LDL Cholesterol Calculated 222 mg/dL (<100); Potassium 4.5 mmol/L (3.3-5.1); Sodium 142 mmol/L (135-145); Total Protein 7.6 g/dL (6.5-8.0); Triglycerides 148 mg/dL (<150)
[2023-12-06 11:37] LABS: Folate 13.7 ng/mL (> or = 4.0); Vitamin B12 614 pg/mL (200-900)
[2023-12-06 11:45] LABS: Free T4 (Free Thyroxine) 0.88 ng/dL (0.71-1.85); Thyroid Stimulating Hormone 1.27 uIU/mL (0.32-4.0); Vitamin D 25-OH Total 41.9 ng/mL (>30)
== END 2023-12-06 09:23 | disposition home or self-care (01) ==
LOC: HO.XRAY 09:22
PROVIDERS: PCP Internal Medicine; Visit Provider Internal Medicine
DX: R13.10 Dysphagia, unspecified (principal); E78.00 Pure hypercholesterolemia, unspecified
CPT/HCPCS: 36415; 74246; 80053; 80061; 82306; 82607; 82746; 84439; 84443; 85025

== ENCOUNTER → 2023-12-06 09:29 | Outpatient (BNV) | payer MEDICARE, SELFPAY | PROVIDERS: PCP Internal Medicine; Visit Provider Physician Assistant Surgical | DX: R13.10 Dysphagia, unspecified (principal); K21.9 Gastro-esophageal reflux disease without esophagitis | CPT/HCPCS: 74246 ==

== ENCOUNTER 2023-12-22 15:05 | Outpatient (AMB) | payer MEDICARE, SELFPAY ==
[2023-12-22 15:08] VITALS: BP 142/79; PULSE 74; O2SAT 96; BMI 40.1
--- NOTE | 2023-12-22 15:08 | MHC.OFFVIS ---
Vital Signs 12/22/23 15:08 Height 5 ft 2 in Weight 219 lb 5.759 oz BMI 40.1 BP 142/79 H Blood Pressure Location Lt brachial Position Sitting Pulse 74 Pulse Source Doppler Pulse Oximetry (%) 96 Oxygen Delivery Method Room Air Intake Visit Reasons: sleep apnea Allergies amitriptyline Adverse Reaction (Severe, Verified 12/22/23 15:10) worsening anxiety gabapentin Adverse Reaction (Severe, Verified 12/22/23 15:10) increased anxiety, dyspnea HPI HPI sleep apnea: Details: 63-year-old lady, recently worked up for obstructive sleep apnea with a home sleep study test that demonstrated AHI under 5, however significant nocturnal hypoxemia. Patient states that she previously tried to have an in-lab sleep study, however she was not able to tolerated. She is interested in supplemental nocturnal oxygen. [facility] Medical History (Updated 12/12/23 @ 19:27 by Immanuel Sims MD) Nicotine dependence, cigarettes, uncomplicated Personal history of COVID-19 COPD (chronic obstructive pulmonary disease) Generalized anxiety disorder Insomnia GERD (gastroesophageal reflux disease) Hypercholesterolemia Hypertension Osteoarthritis of right knee Osteoarthritis of right hip Surgical History (Updated 03/25/23 @ 12:35 by Jocelyn Hills PA-C) History of total right knee replacement History of inguinal hernia repair History of carpal tunnel release of both wrists History of section Family History Mother No problems noted. Father Myocardial infarct Lung cancer Sister Myocardial infarct CVA (cerebral vascular accident) Ovarian cancer Brother CVA (cerebral vascular accident) Social History Household Members: Family Housing: House Are you a primary morning caregiver to a significant other at home: No Do you presently have visiting nurse or other home services: No Alcohol intake: current Alcohol intake frequency: holidays/special occasions only Alcohol type: wine Patient Tobacco Use Status: Never used Tobacco Tobacco use type: Cigarette Cigarettes Per Day: 10 Years Smoked: (onset 12yo, x 30yrs max 1.5ppd, now 1ppd - 45pyh) e-Cigarette/Vaping Use: Never Used Second Hand Smoke Exposure: No service: No Current occupational status: disabled Current occupation: Right handed Cognitive needs: No Hearing needs: No Vision needs: Yes Review of Systems Const Denies daytime sleepiness, Denies excessive sweating, Reports fatigue, Denies fever(s), Reports lethargy, Denies malaise, Denies night sweats, Denies snoring and Denies weight loss Eyes Denies blurry vision and Denies itchy eyes ENT Denies nasal congestion, Denies post nasal drip, Denies sinus pain, Denies sinus pressure and Denies other ( Thrush) Card Denies chest pain, Denies pedal edema, Denies dyspnea, Denies orthopnea and Denies paroxysmal nocturnal dyspnea Resp Denies cough, Denies hemoptysis, Denies excessive phlegm production, Denies dyspnea, Denies snoring and Denies wheezing GI Denies abdominal pain and Denies heartburn Musc Denies myalgias, Denies arthralgias and Denies joint swelling Skin/Breast Denies rash Neuro Denies memory loss and Denies seizure-like activity Psych Denies abnormal sleep pattern, Denies anxiety and Denies memory loss Endo Denies excessive sweating, Reports fatigue and Denies heat intolerance Amado/Lymph Denies easy bruising Aller/Immun Denies itchy eyes, Denies seasonal rhinorrhea and Denies wheezing Physical Exam Vital Signs: Last Vital Signs Pulse 74 12/22/23 15:08 BP 142/79 H 12/22/23 15:08 Pulse Ox 96 12/22/23 15:08 Oxygen Delivery Method Room Air 12/22/23 15:08 BMI result Body Mass Index 40.1 Const General: no acute distress and alert Nutritional Appearance: obese Orientation/consciousness: Other orientation findings ( oriented) HEENT Head: Yes atraumatic Eyes General: appearance normal, both eyes and all related structures Sclerae: sclerae normal EOM: EOMs intact bilaterally Neck Neck: Yes supple Lymphatic: no lymphadenopathy noted Resp Effort & Inspection: normal respiratory effort and no use of accessory muscles Auscultation: clear to auscultation bilaterally Cardio Rate: regular rate Rhythm: regular rhythm Heart sounds: no gallops, no murmurs and no rubs Skin General skin exam: other ( warm) Extrem General: No clubbing, No cyanosis and No edema Assessment & Plan Assessment & Plan (1) Nocturnal hypoxemia: Comment: Sleep study done October 2023 Code(s): G47.34 - Idiopathic sleep related nonobstructive alveolar hypoventilation Category: Medical Plan: Nocturnal hypoxemia without sleep apnea. Will start on supplemental nocturnal oxygen. Coding Level of Care Code New Pt Level 3 (28944) Diagnoses Nocturnal hypoxemia G47.34
== END 2023-12-22 15:31 | disposition home or self-care (01) ==
PROVIDERS: PCP Internal Medicine; Visit Provider Internal Medicine Pulmonary Disease
DX: G47.34 Idiopathic sleep related nonobstructive alveolar hypoventilation (principal)
CPT/HCPCS: 99203

== ENCOUNTER → 2023-12-22 15:05 | Outpatient (BNVA) | payer MEDICARE, SELFPAY | PROVIDERS: PCP Internal Medicine; Visit Provider Internal Medicine Pulmonary Disease | DX: G47.34 Idiopathic sleep related nonobstructive alveolar hypoventilation (principal) | CPT/HCPCS: 99202 ==

== ENCOUNTER 2024-06-18 14:02 | Outpatient (AMB) | payer MEDICARE, SELFPAY ==
[2024-06-18 14:04] VITALS: BP 160/92; PULSE 76; O2SAT 96; BMI 38.8
--- NOTE | 2024-06-18 14:04 | A.OFFPC_ITS ---
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 Accompanied by: Self / Same As Patient Allergies amitriptyline Adverse Reaction (Severe, Verified 06/18/24 14:21) worsening anxiety gabapentin Adverse Reaction (Severe, Verified 06/18/24 14:21) increased anxiety, dyspnea Medication List - Last Reconciled 06/18/24 by Katie Vogel PA-C acetaminophen 650 mg (2 x 325 mg) PO Q6H PRN 30 days albuterol sulfate 90 mcg/actuation (Ventolin HFA) 2 puffs inhalation Q4-6H PRN budesonide-formoterol 160-4.5 mcg/actuation (Symbicort) 2 puffs inhalation Q12H bupropion HCl XL 300 mg PO QAM 90 days duloxetine 30 mg PO DAILY 90 days hydrochlorothiazide 12.5 mg PO DAILY lidocaine 4% (Aspercreme (lidocaine)) 1 patch topical DAILY PRN lisinopril 40 mg PO DAILY [Nicoderm ] omeprazole 20 mg PO DAILY ropinirole 1 mg PO TID 30 days sennosides (Senna Lax) 17.2 mg (2 x 8.6 mg) PO BEDTIME PRN 30 days walker Folding Front wheeled walker Tobacco use date assessed: 10/03/23 Fall risk assessment: 2 + Falls in past year Last assessed Fall Risk: 06/18/24 Dental Screening Dental Screen Date: 10/03/23 HPI annual exam HPI Details 63-year-old obese female smoker with gen eralized anxiety disorder, GERD, hypercholesterolemia, hypertension, COPD last seen by Dr. Sims September 2023 coming in for annual exam.? In review of the notes, patient was seen by vivienne barlow december 2023 started on supplemental nocturnal oxygen. Patient complaining of generalized joint pain in the hands and feet. She does mentioned the right hand specifically her pinky finger had direct trauma over the summer and has been cook it ever since. She was never evaluated for this concern. She does not see a counselor or psychiatrist but does struggle with anxiety and depression. She has a history of retinal eye disease and has not been seen by an eye doctor in several years. She has a history of restless legs syndrome and feels her symptoms have been worsening. Blood pressures at home have been elevated over 140/90. She is not up-to-date with colonoscopy or mammogram. [facility] Medical History Nicotine dependence, cigarettes, uncomplicated Personal history of COVID-19 COPD (chronic obstructive pulmonary disease) Generalized anxiety disorder Insomnia GERD (gastroesophageal reflux disease) Hypercholesterolemia Hypertension Osteoarthritis of right knee Osteoarthritis of right hip Surgical History History of total right knee replacement History of inguinal hernia repair History of carpal tunnel release of both wrists History of section Family History Mother No problems noted. Father Myocardial infarct Lung cancer Sister Myocardial infarct CVA (cerebral vascular accident) Ovarian cancer Brother CVA (cerebral vascular accident) Social History Household Members: Family Housing: House Are you a primary day care supervisor to a significant other at home: No Do you presently have visiting nurse or other home services: No Alcohol intake: current Alcohol intake frequency: holidays/special occasions only Alcohol type: wine Patient Tobacco Use Status: Current everyday Tobacco user Tobacco use type: Cigarette Cigarettes Per Day: 10 Years Smoked: (onset 12yo, x 30yrs max 1.5ppd, now 1ppd - 45pyh) e-Cigarette/Vaping Use: Never Used Second Hand Smoke Exposure: No service: No Current occupational status: disabled Current occupation: Right handed Cognitive needs: No Hearing needs: No Vision needs: Yes Questionnaire PHQ-9 Over the last 2 weeks, how often have you been bothered by any of the following problems? 1. Little interest or pleasure in doing things: several days 2. Feeling down, depressed, or hopeless: several days 3. Trouble falling or staying asleep, or sleeping too much: several days 4. Feeling tired or having little energy: more than half the days 5. Poor appetite or overeating: several days 6. Feeling bad about yourself - or that you are a failure or have let yourself or your family down: not at all 7. Trouble concentrating on things, such as reading the newspaper or watching television: not at all 8. Moving or speaking so slowly that other people could have noticed. Or the opposite - being so fidgety or restless that you have been moving around a lot more than usual: not at all 9. Thoughts that you would be better off or of hurting yourself in some way: not at all Total score: 6 Depression Screening Interpretation: Positive Depression Screening Follow-up: Existing condition and In treatment Depression Screening Done: Yes Source: Developed by Drs. Elpidio Kim, Annika Farah, Adi Arboleda and colleagues, with an educational jacob from [employer]). Thrive Questionnaire Date Thrive assessed: 06/18/24 I am a: Patient What is your living situation today?: I have a steady place to live Within the past 12 months, did the food you bought not last and you didn't have the money to get more?: Never true Within the past 12 months, did you worry whether your food would run out before you got money to buy more?: Never true Do you have trouble paying for medicines?: No Do you have trouble getting transportation to medical appointments?: Yes Do you have trouble paying your heating and electricity bill?: Yes Do you have trouble taking care of your child, family member or friend?: No Do you have trouble with day-to-day activities such as bathing, preparing meals, shopping, managing finances, etc.?: No Are you currently unemployed and looking for a job?: No Are you interested in more education?: No Please select the resources that you would like help with: None Currently or been in a relationship where the following occur: No concerns reported THRIVE Score: 2 AUDIT C Alcohol Use Questionnaire (AUDIT-C) 1. How often do you have a drink containing alcohol?: Monthly or less 2. How many drinks containing alcohol do you have on a typical day when you are drinking?: 1 or 2 3. How often do you have six or more drinks on one occasion?: Never Total Score: 1 SHAN-7 AMB Questionnaire SHAN-7 Date SHAN - 7 assessed: 10/03/23 Feeling nervous, anxious, or on edge: 2 = More than half the days Not being able to stop or control worryin = More than half the days Worrying too much about different things: 2 = More than half the days Trouble relaxin = More than half the days Being so restless that it is hard to sit still: 2 = More than half the days Becoming easily annoyed or irritable: 1 = Several days Feeling afraid as if something awful might happen: 0 = Not at all Total SHAN-7 score (0-4 normal; 5-9 mild; 10-14 moderate; 15-21 severe): 11 Source: Developed by Drs. Elpidio Kim, Annika Farah, Adi Arboleda and colleagues, with an educational jacob from [employer]). SHAN-7 Assessment Billing SHAN-7 Assessment Tool: SHAN-7 Assessment 93079 Review of Systems Const Denies body aches, Denies fatigue, Denies fever(s), Denies frequent falls, Reports headache(s) and Denies weakness Eyes Details: blurred vision Reports no additional complaints and Denies change in vision ENT Reports dysphagia (occasional ), Denies dizziness, Denies facial pain, Reports headache(s), Denies nasal congestion and Denies odynophagia Card Denies chest pain, Denies syncope, Denies irregular heart rhythm, Denies leg edema, Denies lightheadedness and Denies dyspnea Resp Denies cough and Denies dyspnea GI Denies constipation, Reports dysphagia (occasional ), Denies dyspepsia, Denies diarrhea, Denies nausea, Denies odynophagia and Denies vomiting Denies urinary frequency, Denies dysuria, Denies urinary hesitancy and Denies urinary urgency Musc Details: generalized joint pain Denies back pain and Denies myalgias Skin/Breast Reports system reviewed and no additional complaints, except as documented Neuro Denies dizziness, Denies syncope, Denies frequent falls, Reports headache(s) and Denies weakness Psych Reports no additional complaints Endo Denies fatigue Physical exam (Primary Care) Vital Signs: Last Vital Signs Pulse 76 06/18/24 14:04 BP 154/82 H 06/18/24 14:47 Pulse Ox 96 06/18/24 14:04 Oxygen Delivery Method Room Air 06/18/24 14:04 BMI result Body Mass Index 38.8 BMI Assessment/Plan discussion: High BMI High, discussed plan: lifestyle, dietary and physical activity Tobacco/Smoking Status: Tobacco use Status Tobacco use date assessed 10/03/23 06/18/24 14:08 Patient Tobacco Use Status Current everyday Tobacco 06/18/24 14:24 Tobacco use type Cigarette 06/18/24 14:08 e-Cigarette/Vaping Use Never Used 06/18/24 14:08 Are you ready to quit: No Tobacco cessation counseling provided: Yes Items discussed: Nicotine replacement Relapse Prevention: discussed dietary, exercise and/or lifestyle changes Number of minutes spent counselin CPT code: 25674 - 4-10 Minutes PHQ-9: PHQ-9 Score PHQ-9: Total score 6 06/18/24 14:25 Depression Screening Interpretation: Positive Depression Screening Follow-up: Existing condition and In treatment Thrive Assessment: Date of Thrive Assessment Date Thrive assessed 06/18/24 06/18/24 14:08 Currently or been in a relationship where the following occur: No concerns reported Advance Care Planning discussion: Completed/Scanned Date of discussion: 06/18/24 Who was present: patient Forms completed: Health Care Proxy and MOLST Time spent: 1-15 minutes, not on file Actual minutes spent: 5 Did not discuss due to Cultural/Spiritual beliefs: No Const General: cooperative, healthy appearing, comfortable and no acute distress Orientation/consciousness: patient oriented x3 HENMT Head: Yes normocephalic Ears: hearing grossly normal bilaterally, external ears normal, TM's normal bilaterally and EAC's normal General nose exam: Normal external nose present Face and sinus: Yes normal facial exam and Yes sinuses nontender Mouth: Normal oral and palatal mucosa present and tongue normal Throat: Yes posterior oropharynx normal Eyes General: appearance normal, both eyes and all related structures Conjunctivae: conjunctivae normal Pupils: Equal, round and reactive pupils present EOM: EOMs intact bilaterally and No Nystagmus present Neck Neck: Yes normal visual inspection, Yes full ROM and Yes no lymphadenopathy Chest Chest palpation & inspection: normal inspection of the chest Resp Effort & Inspection: normal respiratory effort Auscultation: clear to auscultation bilaterally, no crackles, no rales, no rhonchi, no wheezes and breath sounds present Cardio Rate: regular rate Rhythm: regular rhythm Peripheral pulses: radial pulses present and dorsalis pedis present GI Inspection: Yes normal to inspection and No Abdominal wall edema Palpation (GI): Soft to palpation, not firm and nontender Auscultation: normal bowel sounds Rectal Exam - Female: deferred General: Yes no CVA tenderness Back/Spine/Pelvis Back: no CVA tenderness Skin General skin exam: no rashes or lesions noted Neuro General: patient oriented x3 Cranial nerves: Yes Equal, round and reactive pupils present, Yes Midline tongue present, Yes Ability to bilaterally elevate shoulders present and No Nystagmus present Gait exam (Neuro): Normal gait present Extrem Other: Tenderness to palpation of right 5th digit with intact pulses, strength, sensation General: Yes normal to inspection, Yes full ROM, No no pedal edema and No edema Psych Speech and movement: Normal speech and movement present Affect: normal affect Insight: Good insight present (Psych) Judgement: Good judgement present (Psych) Office Procedures Flu Questionnaire Does the patient have a severe egg allergy?: No Does the patient have severe life threatening allergies?: No Does the patient have a fever or illness today?: No Has the patient ever had Guillain-R[place] Syndrome?: No Has the patient ever had any past reaction to a flu shot?: No Immunizations Fluarix Triv [id number] (PF) 45 mcg (15 mcg x 3)/0.5 mL IM syringe Performing Provider: Katie Vogel PA-C [facility] Administered by: JUAN ANTONIO Wills on 06/18/24 14:55 Dose Route Admin Location Dispensed Lot Number Expiration Date N[employer] 0.5 mL IM Left Anterolateral Thigh 0.5 mL [id number] 06/18/24 62148-062-51 [employer] VIS Given Date VIS Provided VIS Publication Date 06/18/24 Single Vaccine 21 Eligibility Eligibility Date Funding Source Not [facility] Eligible 06/18/24 Private Coding Level of Care Code Est Pt Level 3 (69387) Est Pt Prev Care >65y(33841) Diagnoses GERD (gastroesophageal reflux disease) K21.9 Nocturnal hypoxemia G47.34 Pulmonary nodule R91.1 Hypercholesterolemia E78.00 Hypertension I10 COPD (chronic obstructive pulmonary disease) J44.9 Nicotine dependence, cigarettes, uncomplicated F17.210 Generalized anxiety disorder F41.1 Annual physical exam Z00.00 RLS (restless legs syndrome) G25.81 Right hand pain M79.641 Additional Codes SHAN-7 Assessment Billing - SHAN-7 Assessment Tool: SHAN-7 Assessment 74167 ([id number]) Vital Signs *Quality* - CPT code: 61597 - 4-10 Minutes ([id number]) Vital Signs *Quality* - Advance Care Planning discussion: Completed/Scanned ([id number]) Vital Signs *Quality* - Time spent: 1-15 minutes, not on file ([id number]) Assessment & Plan Assessment & Plan (1) GERD (gastroesophageal reflux disease): Code(s): K21.9 - Gastro-esophageal reflux disease without esophagitis Category: Medical Plan: Avoid trigger foods such as citrus, tomato products, soda, caffeine, spicy foods and other foods that may be irritating to your stomach. Avoid laying flat 3-4 hours after eating and elevate the head of the bed 30 degrees to prevent acid from moving into the esophagus. Continue on omeprazole 20. Recently had upper GI series which recommended further follow up with EGD and has a follow up with Gastroenterology in July for this concern. (2) Nocturnal hypoxemia: Comment: Sleep study done October 2023 Code(s): G47.34 - Idiopathic sleep related nonobstructive alveolar hypoventilation Category: Medical Plan: Recently started on nocturnal oxygen supplementation by pulmonology. (3) Pulmonary nodule: Comment: April 2023 CT scan Code(s): R91.1 - Solitary pulmonary nodule Category: Medical Plan: Continue to follow with pulmonology. (4) Hypercholesterolemia: Code(s): E78.00 - Pure hypercholesterolemia, unspecified Category: Medical Plan: Avoid foods that are high in cholesterol such as red meat, fried foods, eggs and baked goods. Triglyceride goal of less than 150 and LDL goal of less than 100. Not currently on medical management. Cholesterol elevated on last exam LDL over 200. We will trial Zetia 10 mg daily and repeat cholesterol in 3 months. (5) Hypertension: Code(s): I10 - Essential (primary) hypertension Category: Medical Plan: Avoid salt in taken encouraged healthy diet and regular exercise. Patient on lisinopril 40 mg and in September was started on hydrochlorothiazide 12.5 mg which she states she never received from the pharmacy. Refilled this prescription and advised patient to continue taking blood pressures and if continues to be over 140/90 to reach out to the office. (6) COPD (chronic obstructive pulmonary disease): Code(s): J44.9 - Chronic obstructive pulmonary disease, unspecified Category: Medical Plan: COPD currently controlled on present medications. Continue to follow up with pulmonology Avoid triggers such as allergies and smoking. Strongly advised to stop smoking. (7) Nicotine dependence, cigarettes, uncomplicated: Comment: (current smoker onset 12yo, x 30yrs max 1.5ppd, now 1ppd - 45pyh) Code(s): F17.210 - Nicotine dependence, cigarettes, uncomplicated Category: Medical Plan: Smoking cigarettes and the use of tobacco can be harmful. We discussed the importance of stopping and options to aid in smoking cessation. Enrolled in annual lung cancer screening program. Declines smoking cessation aide. (8) Generalized anxiety disorder: Code(s): F41.1 - Generalized anxiety disorder Category: Medical Plan: Continue on present medication. Patient previously on duloxetine 30 mg and found this beneficial and would like to restart prescription sent. Unclear why prescription was initially discontinued. (9) Annual physical exam: Code(s): Z00.00 - Encounter for general adult medical examination without abnormal findings Category: Medical Plan: Patient is due for mammogram and colorectal cancer screening. Order was placed for mammogram screening as well as Cologuard box. Ordered for additional blood work. (10) RLS (restless legs syndrome): Code(s): G25.81 - Restless legs syndrome Category: Medical Plan: Patient continues to have restless legs symptoms throughout the day worse at night. Increase ropinirole to 1.5 mg at night and continue on 1 mg morning and afternoon. (11) Right hand pain: Code(s): M79.641 - Pain in right hand Category: Medical Plan: Patient complaining of right hand pain did have an accident over the summer where she had direct trauma to the hand area. Ordered for x-ray as well as uric acid and rheumatoid factor. Plan This note was constructed using voice recognition software. While every effort has been made to ensure accuracy and government contracts manager, still areas may have been included sometimes these areas may affect the content or meeting of the given symptoms. Total time spent caring for the patient today was 30 minutes. This includes time spent before the visit reviewing the chart, time spent during the visit, and time spent after the visit and documentation. Orders: Orders Uric Acid Today M79.641 - Pain in right hand MM tomosynthesis screening BI Today M79.641 - Pain in right hand, Z12.31 - Encounter for screening mammogram for malignant neoplasm of breast Lipid Panel 3 Months Z00.00 - Encounter for general adult medical examination without abnormal findings XR hand RT 2V Today M79.641 - Pain in right hand Rheumatoid Factor Today M79.641 - Pain in right hand Influenza [id number] Immunization Today Z23 - Encounter for immunization Referrals Ophthalmology Referral H35.9 - Unspecified retinal disorder Cologuard Test Z12.11 - Encounter for screening for malignant neoplasm of colon, Z12.12 - Encounter for screening for malignant neoplasm of rectum Medications: New ezetimibe 10 mg PO DAILY 30 tabs 2RF ropinirole administer 1-3 hours before bedtime 0.5 mg PO BEDTIME 60 tabs 1RF Refilled hydrochlorothiazide 12.5 mg PO DAILY 90 tabs 2RF I10 - Essential (primary) hypertension duloxetine 30 mg PO DAILY 90 days 90 caps 2RF M17.11 - Unilateral primary osteoarthritis, right knee
[2024-06-18 14:47] VITALS: BP 154/82
== END 2024-06-18 15:26 | disposition home or self-care (01) ==
LOC: HO.HMCH 14:03
PROVIDERS: PCP Internal Medicine
DX: K21.9 Gastro-esophageal reflux disease without esophagitis (principal); J44.9 Chronic obstructive pulmonary disease, unspecified; G47.34 Idiopathic sleep related nonobstructive alveolar hypoventilation; R91.1 Solitary pulmonary nodule; E78.00 Pure hypercholesterolemia, unspecified; I10 Essential (primary) hypertension; F17.210 Nicotine dependence, cigarettes, uncomplicated; F41.1 Generalized anxiety disorder; G25.81 Restless legs syndrome; M79.641 Pain in right hand; Z00.00 Encounter for general adult medical examination without abnormal findings

== ENCOUNTER → 2024-06-18 14:02 | Outpatient (BNVA) | payer MEDICARE, SELFPAY | PROVIDERS: PCP Internal Medicine | DX: Z23 Encounter for immunization (principal); K21.9 Gastro-esophageal reflux disease without esophagitis; G47.34 Idiopathic sleep related nonobstructive alveolar hypoventilation; R91.1 Solitary pulmonary nodule; E78.00 Pure hypercholesterolemia, unspecified; I10 Essential (primary) hypertension; F41.1 Generalized anxiety disorder; G25.81 Restless legs syndrome; M79.641 Pain in right hand; F17.210 Nicotine dependence, cigarettes, uncomplicated; Z71.6 Tobacco abuse counseling | CPT/HCPCS: 90471; 90656; 96127; 99212 ==

== ENCOUNTER 2024-06-22 08:59 | Outpatient (REF) | payer MEDICARE, SELFPAY ==
--- NOTE | ~2024-06-22 | XR_ITS ---
EXAMINATION: XR HAND, RIGHT CLINICAL INFORMATION: Pain COMPARISON: None available. TECHNIQUE: PA, lateral, and oblique views of the right hand. FINDINGS: There is an irregularity/lytic lesion in the distal tuft of the second digit with surrounding soft tissue swelling. Alignment is anatomic. Joint spaces are maintained. No erosions or soft tissue calcifications. XR/XR hand RT 2V IMPRESSION: Irregularity/lytic lesion in the distal tuft of the second digit with surrounding soft tissue swelling. Recommend correlation for fracture or other injury versus infection. Electronically signed by: Vannessa Rosario MD 06/22/2024 10:06 AM EDT
[2024-06-22 11:53] LABS: Rheumatoid Factor 24.6 IU/mL (<15.0)
[2024-06-22 12:05] LABS: Cholesterol 281 mg/dL (<200); HDL Cholesterol 46 mg/dL (>40); LDL Cholesterol Calculated 189 mg/dL (<100); Triglycerides 231 mg/dL (<150); Uric Acid 5.8 mg/dL (2.4-5.7)
== END 2024-06-22 09:00 | disposition home or self-care (01) ==
LOC: HO.XRAY 08:59
PROVIDERS: PCP Internal Medicine
DX: Z00.00 Encounter for general adult medical examination without abnormal findings (principal); M79.641 Pain in right hand
CPT/HCPCS: 36415; 73120; 80061; 84550; 86431

== ENCOUNTER 2024-09-03 10:26 | Outpatient (AMB) | payer MEDICARE, SELFPAY ==
--- NOTE | 2024-09-03 10:28 | MHC.PC.OV ---
Vital Signs 09/03/24 10:31 Height 5 ft 2 in Weight 216 lb 6 oz BMI 39.6 BP 140/82 H Blood Pressure Location Lt brachial Position Sitting Pulse 73 Pulse Source Pulse Oximeter Pulse Oximetry (%) 93 Oxygen Delivery Method Room Air Intake Visit Reasons: 3 month f/u Intake Note: Patient is here to follow up on GERD, HTN, COPD, DJD. Flare Stitcher Required: No Quality Control Engineering Technician: Not Required per policy Accompanied by: Self / Same As Patient Allergies amitriptyline Adverse Reaction (Severe, Verified 09/03/24 10:30) worsening anxiety gabapentin Adverse Reaction (Severe, Verified 09/03/24 10:30) increased anxiety, dyspnea Medication List - Last Reconciled 09/03/24 by Katie Vogel PA-C acetaminophen 650 mg (2 x 325 mg) PO Q6H PRN 30 days albuterol sulfate 90 mcg/actuation (Ventolin HFA) 2 puffs inhalation Q4-6H PRN budesonide-formoterol 160-4.5 mcg/actuation (Symbicort) 2 puffs inhalation Q12H bupropion HCl XL 300 mg PO QAM duloxetine 30 mg PO DAILY 90 days ezetimibe 10 mg PO DAILY hydrochlorothiazide 12.5 mg PO DAILY lidocaine 4% (Aspercreme (lidocaine)) 1 patch topical DAILY PRN lisinopril 40 mg PO DAILY meloxicam 7.5 mg PO DAILY [Nicoderm ] omeprazole 20 mg PO DAILY ropinirole 0.5 mg PO BEDTIME ropinirole 1 mg PO TID 30 days sennosides (Senna Lax) 17.2 mg (2 x 8.6 mg) PO BEDTIME PRN 30 days walker Folding Front wheeled walker Tobacco use date assessed: 09/03/24 Fall risk assessment: No Falls in past year Last assessed Fall Risk: 09/03/24 Dental Screening Dental Screen Date: 09/03/24 Did you have a dental visit in the last 12 months?: No Did you have a dental problem in the last 6 months where you did not have access to dental care?: No Was dental information given to patient?: No HPI 3 month f/u HPI Details 63-year-old female with past medical history of generalized anxiety disorder, GERD, hypercholesterolemia, hypertension COPD last seen 05/2024 coming into follow up. Patient tells us today she believes she may have broken her right pinky few months ago gardening however did not see a hand specialist or any provider for this concern. She states over the last several months her hands we will ?lock up? and has an inability to bend her fingers. She did have an elevated rheumatoid factor and was referred to Rheumatology but has not heard from them at this time. She is also concerned about chronic back pain that has been worsening. Due to her stomach ulcer she is unable to take any NSAIDs and continues to have pain despite using Tylenol and lidocaine patches. She does take her blood pressure at home and they have been elevated. She has been taking the hydrochlorothiazide but states it makes her use the bathroom often and she does not like this medication. She continues to smoke cigarettes and has no interest in quitting. [facility] Medical History Nicotine dependence, cigarettes, uncomplicated Personal history of COVID-19 COPD (chronic obstructive pulmonary disease) Generalized anxiety disorder Insomnia GERD (gastroesophageal reflux disease) Hypercholesterolemia Hypertension Osteoarthritis of right knee Osteoarthritis of right hip Surgical History History of total right knee replacement History of inguinal hernia repair History of carpal tunnel release of both wrists History of section Family History Mother No problems noted. Father Myocardial infarct Lung cancer Sister Myocardial infarct CVA (cerebral vascular accident) Ovarian cancer Brother CVA (cerebral vascular accident) Social History Household Members: Family Housing: House Are you a primary care transitions nurse to a significant other at home: No Do you presently have visiting nurse or other home services: No Alcohol intake: current Alcohol intake frequency: holidays/special occasions only Alcohol type: wine Patient Tobacco Use Status: Current everyday Tobacco user Tobacco use type: Cigarette Cigarette Packs Per Day: 1 Cigarettes Per Day: 20 Years Smoked: (onset 12yo, x 30yrs max 1.5ppd, now 1ppd - 45pyh) e-Cigarette/Vaping Use: Never Used Second Hand Smoke Exposure: Yes service: No Current occupational status: disabled Current occupation: Right handed Cognitive needs: No Hearing needs: No Vision needs: Yes (Glasses) Questionnaire PHQ-9 Over the last 2 weeks, how often have you been bothered by any of the following problems? 1. Little interest or pleasure in doing things: not at all 2. Feeling down, depressed, or hopeless: not at all 3. Trouble falling or staying asleep, or sleeping too much: not at all 4. Feeling tired or having little energy: not at all 5. Poor appetite or overeating: not at all 6. Feeling bad about yourself - or that you are a failure or have let yourself or your family down: not at all 7. Trouble concentrating on things, such as reading the newspaper or watching television: not at all 8. Moving or speaking so slowly that other people could have noticed. Or the opposite - being so fidgety or restless that you have been moving around a lot more than usual: not at all 9. Thoughts that you would be better off or of hurting yourself in some way: not at all Total score: 0 Depression Screening Interpretation: Negative Depression Screening Done: Yes Source: Developed by Drs. Elpidio Kim, Annika Farah, Adi Arboleda and colleagues, with an educational jacob from [employer]. Thrive Questionnaire Date Thrive assessed: 09/03/24 AUDIT C Alcohol Use Questionnaire (AUDIT-C) 1. How often do you have a drink containing alcohol?: Monthly or less 2. How many drinks containing alcohol do you have on a typical day when you are drinking?: 1 or 2 Total Score: 1 SHAN-7 AMB Questionnaire SHAN-7 Date SHAN - 7 assessed: 09/03/24 Feeling nervous, anxious, or on edge: 1 = Several days Not being able to stop or control worryin = Not at all Worrying too much about different things: 0 = Not at all Trouble relaxin = More than half the days Being so restless that it is hard to sit still: 2 = More than half the days Becoming easily annoyed or irritable: 0 = Not at all Feeling afraid as if something awful might happen: 0 = Not at all Total SHAN-7 score (0-4 normal; 5-9 mild; 10-14 moderate; 15-21 severe): 5 Source: Developed by Drs. Elpidio Kim, Annika Farah, Adi Arboleda and colleagues, with an educational jacob from [employer]. Review of Systems Const Denies body aches, Denies chills, Denies fever(s), Denies headache(s) and Denies poor appetite Eyes Reports no additional complaints ENT Denies dysphagia, Denies dizziness, Denies headache(s) and Denies odynophagia Card Denies chest pain, Denies syncope, Denies edema, Denies irregular heart rhythm, Denies lightheadedness and Denies dyspnea Resp Denies cough and Denies dyspnea GI Denies abdominal pain, Denies constipation, Denies dysphagia, Denies diarrhea, Denies nausea, Denies odynophagia and Denies vomiting Reports no additional complaints Musc Details: Bilateral hand pains Denies abnormal gait and Reports back pain Skin/Breast Reports system reviewed and no additional complaints, except as documented Neuro Denies abnormal gait, Denies dizziness, Denies syncope and Denies headache(s) Psych Reports no additional complaints Physical exam (Primary Care) Vital Signs: Last Vital Signs Pulse 73 09/03/24 10:31 BP 140/82 H 09/03/24 10:31 Pulse Ox 93 09/03/24 10:31 Oxygen Delivery Method Room Air 09/03/24 10:31 BMI result Body Mass Index 39.6 Tobacco/Smoking Status: Tobacco use Status Tobacco use date assessed 09/03/24 09/03/24 10:39 Patient Tobacco Use Status Current everyday Tobacco 09/03/24 10:39 Tobacco use type Cigarette 09/03/24 10:39 e-Cigarette/Vaping Use Never Used 09/03/24 10:39 PHQ-9: PHQ-9 Score PHQ-9: Total score 0 09/03/24 10:47 Depression Screening Interpretation: Negative Thrive Assessment: Date of Thrive Assessment Date Thrive assessed 09/03/24 09/03/24 10:39 Const General: cooperative, healthy appearing, comfortable and no acute distress Orientation/consciousness: patient oriented x3 HENMT Head: Yes normocephalic Ears: hearing grossly normal bilaterally General nose exam: Normal external nose present Eyes General: appearance normal, both eyes and all related structures Conjunctivae: conjunctivae normal Neck Neck: Yes full ROM and Yes no lymphadenopathy Resp Effort & Inspection: normal respiratory effort Auscultation: clear to auscultation bilaterally, no crackles, no rales, no rhonchi and no wheezes Cardio Rate: regular rate Rhythm: regular rhythm Skin General skin exam: no rashes or lesions noted Neuro General: patient oriented x3 Gait exam (Neuro): Normal gait present Extrem General: Yes normal to inspection, Yes full ROM and No edema Psych Affect: normal affect Attitude: cooperative Insight: Good insight present (Psych) Judgement: Good judgement present (Psych) Coding Level of Care Code Est Pt Level 4 (00997) Diagnoses GERD (gastroesophageal reflux disease) K21.9 Hypertension I10 Hypercholesterolemia E78.00 COPD (chronic obstructive pulmonary disease) J44.9 Nicotine dependence, cigarettes, uncomplicated F17.210 Right hand pain M79.641 Degenerative disc disease, lumbar M51.369 Assessment & Plan Assessment & Plan (1) GERD (gastroesophageal reflux disease): Code(s): K21.9 - Gastro-esophageal reflux disease without esophagitis Category: Medical Plan: Avoid trigger foods such as citrus, tomato products, soda, caffeine, spicy foods and other foods that may be irritating to your stomach. Avoid laying flat 3-4 hours after eating and elevate the head of the bed 30 degrees to prevent acid from moving into the esophagus. (2) Hypertension: Code(s): I10 - Essential (primary) hypertension Category: Medical Plan: Continue on current blood pressure medication. Avoid salt intake and encourage healthy diet and regular exercise. Continue on lisinopril 40 mg and we will discontinue hydrochlorothiazide at this time due to bothersome side effects. Patient continues to have elevated blood pressures at home we will start on amlodipine 2.5 mg and follow up in 6 weeks. (3) Hypercholesterolemia: Code(s): E78.00 - Pure hypercholesterolemia, unspecified Category: Medical Plan: Avoid foods that are high in cholesterol such as red meat, fried foods, eggs and baked goods. Triglyceride goal of less than 150 and LDL goal of less than and 100. Continue on Zetia. Patient declining statins. Repeat cholesterol labs ordered (4) COPD (chronic obstructive pulmonary disease): Code(s): J44.9 - Chronic obstructive pulmonary disease, unspecified Category: Medical Plan: COPD currently controlled on present medications. Continue on inhalers. Avoid triggers such as allergies. (5) Nicotine dependence, cigarettes, uncomplicated: Comment: (current smoker onset 12yo, x 30yrs max 1.5ppd, now 1ppd - 45pyh) Code(s): F17.210 - Nicotine dependence, cigarettes, uncomplicated Category: Medical Plan: Patient is a current smoker declines nicotine replacement therapy at this time and is not interested in quitting. Smoking cigarettes and the use of tobacco can be harmful. We discussed the importance of stopping and options to aid in smoking cessation. (6) Right hand pain: Code(s): M79.641 - Pain in right hand Category: Medical Plan: Patient continues to have right hand pain and joint stiffness as well as left hand pain. She did have an elevated rheumatoid factor and was referred to rheumatology 05/2024. Patient has not heard for Rheumatology and she was provided with the number today for follow up. Advised patient if she does not hear from Rheumatology to reach out to our office. Patient was offered orthopedic referral for possible hand injection but declines. (7) Degenerative disc disease, lumbar: Code(s): M51.369 - Other intervertebral disc degeneration, lumbar region without mention of lumbar back pain or lower extremity pain Category: Medical Plan: Patient complaining of low back pain states she has herniated discs and spinal stenosis of the lumbar spine. Would like to see a spinal specialists at this time. Referral placed to [facility] Orders: Orders Lipid Panel Today E78.00 - Pure hypercholesterolemia, unspecified Lyme IgG/IgM w/reflex to WB Today M79.641 - Pain in right hand Referrals Orthopedics Referral M47.812 - Spondylosis without myelopathy or radiculopathy, cervical region, M51.369 - Other intervertebral disc degeneration, lumbar region without mention of lumbar back pain or lower extremity pain Medications: New amlodipine 2.5 mg PO DAILY 60 tabs 2RF Discontinued hydrochlorothiazide Discontinued Reason: Patient no longer taking 12.5 mg PO DAILY 90 tabs 2RF I10 - Essential (primary) hypertension meloxicam Discontinued Reason: Patient no longer taking 7.5 mg PO DAILY 20 tabs 1RF ropinirole administer 1-3 hours before bedtime Discontinued Reason: Patient no longer taking 0.5 mg PO BEDTIME 60 tabs 1RF
[2024-09-03 10:31] VITALS: BP 140/82; PULSE 73; O2SAT 93; BMI 39.6
== END 2024-09-03 11:12 | disposition home or self-care (01) ==
PROVIDERS: PCP Internal Medicine
DX: K21.9 Gastro-esophageal reflux disease without esophagitis (principal); I10 Essential (primary) hypertension; E78.00 Pure hypercholesterolemia, unspecified; J44.9 Chronic obstructive pulmonary disease, unspecified; F17.210 Nicotine dependence, cigarettes, uncomplicated; M79.641 Pain in right hand; M51.369 Other intervertebral disc degeneration, lumbar region without mention of lumbar back pain or lower extremity pain

== ENCOUNTER → 2024-09-03 10:26 | Outpatient (BNVA) | payer MEDICARE, SELFPAY | PROVIDERS: PCP Internal Medicine | DX: K21.9 Gastro-esophageal reflux disease without esophagitis (principal); I10 Essential (primary) hypertension; E78.00 Pure hypercholesterolemia, unspecified; J44.9 Chronic obstructive pulmonary disease, unspecified; M79.641 Pain in right hand; M51.369 Other intervertebral disc degeneration, lumbar region without mention of lumbar back pain or lower extremity pain; F17.210 Nicotine dependence, cigarettes, uncomplicated; Z71.6 Tobacco abuse counseling | CPT/HCPCS: 99212 ==

== ENCOUNTER 2024-10-04 10:03 | Outpatient (AMB) | payer MEDICARE, SELFPAY ==
--- NOTE | 2024-10-04 10:14 | A.OFFVIS_ITS ---
Vital Signs 10/04/24 10:18 Height 5 ft 2 in Weight 218 lb 7.649 oz BMI 40.0 BP 152/115 H Blood Pressure Location Rt brachial Position Sitting Pulse 64 Pulse Source Pulse Oximeter Pulse Oximetry (%) 94 Oxygen Delivery Method Room Air Intake Visit Reasons: abnormal lab res Intake Note: Patient presents for abnormal lab results. Allergies amitriptyline Adverse Reaction (Severe, Verified 10/04/24 10:17) worsening anxiety gabapentin Adverse Reaction (Severe, Verified 10/04/24 10:17) increased anxiety, dyspnea HPI Comments Details: Patient is a 64 y.o. female current every day smoker (1/2 pack per day. 12 pack years) with Hypertension, polyarticular OA, GERD, restless leg syndrome and HLD here today for evaluation of lytic lesion on XR in the setting of positive RF Has been having bilateral hand pain for the past 7 months Also associated with joint stiffness that lasts all day. Does not improve with movement Also feels that the fingers lock up on her and she has to pop them back into place No associated swelling Other joints: Bilateral knees. S/p right knee replacement 2023 and is scheduled for a left knee replacement soon Bilateral feet Back. Has spinal stenosis No known family history of RA or any other autoimmune disease Grandfather and father with hx of OA [facility] Medical History Nicotine dependence, cigarettes, uncomplicated Personal history of COVID-19 COPD (chronic obstructive pulmonary disease) Generalized anxiety disorder Insomnia GERD (gastroesophageal reflux disease) Hypercholesterolemia Hypertension Osteoarthritis of right knee Osteoarthritis of right hip Surgical History History of total right knee replacement History of inguinal hernia repair History of carpal tunnel release of both wrists History of section Family History Mother No problems noted. Father Myocardial infarct Lung cancer Sister Myocardial infarct CVA (cerebral vascular accident) Ovarian cancer Brother CVA (cerebral vascular accident) Social History Household Members: Family Housing: House Are you a primary manager managed care to a significant other at home: No Do you presently have visiting nurse or other home services: No Alcohol intake: current Alcohol intake frequency: holidays/special occasions only Alcohol type: wine Patient Tobacco Use Status: Current everyday Tobacco user Tobacco use type: Cigarette Cigarette Packs Per Day: 1 Cigarettes Per Day: 20 Years Smoked: (onset 12yo, x 30yrs max 1.5ppd, now 1ppd - 45pyh) e-Cigarette/Vaping Use: Never Used Second Hand Smoke Exposure: Yes service: No Current occupational status: disabled Current occupation: Right handed Cognitive needs: No Hearing needs: No Vision needs: Yes (Glasses) Review of Systems Const Details: Review of Systems Constitutional: Denies fever, chills, weight loss ENT: Denies vision changes, eye pain or eye redness, dental caries, dry mouth GI: Denies nausea, vomiting, diarrhea, abdominal pain, change in BM Pulm: Denies SOB, LEACH, hemoptysis, wheezing Cards: Denies chest pain, palpitations Skin: Denies Raynaud's, rash, nail changes, photosensitivity, ICT MANAGERS: Denies headaches, weakness, paresthesias, recurrent falls MSK: as per HPI All other systems reviewed and are unremarkable except noted above Physical Exam Vital signs reviewed Physical Examination CONSTITUITIONAL Patient alert and cooperative. Well appearing and in no apparent painful distress HEENT Conjunctiva and sclera clear. ?Pupils equal round and reactive to light. ?No lymphadenopathy. ? CHEST/RESPIRATORY SYSTEM Normal respiratory effort and able to speak in complete sentences. ?Clear to auscultation bilaterally. ?No crackles, rales, rhonchi, wheezes heard. CARDIAC SYSTEM Regular rate and rhythm. ?S1 and S2 heard no murmurs. ?Radial pulses intact bilaterally MSK Hands: ?Good dicer operator strength bilaterally. No deformities noted. ?No synovitis noted to the MCPs, PIPs or DIPs. ?No tenderness to palpation of these joints. Heberden's nodes noted throughout Wrists: ?Full range of motion at the wrists without pain. ?No tenderness to palpation or synovitis noted to the wrists. Elbows: Full range of motion without pain. No tenderness, weakness, swelling, increased warmth or erythema. Shoulders: Full range of motion without pain. No tenderness, weakness, swelling, increased warmth or erythema. Hips: Full range of motion without pain. Hip bursa: No tenderness to palpation Knees: ?Full range of motion. ?No tenderness, swelling, increased warmth or erythema.?No effusion or crepitations Ankles: Full range of motion. ?No tenderness, swelling, increased warmth or erythema.? Feet: ?Negative squeeze test. ?No tenderness to palpation or swelling of the MTPs. Tender points:?No tenderness to palpation of the bilateral trapezius, supraspinatus, greater trochanters, anterior costochondral junctions, bilateral gluteal areas, bilateral suboccipital muscle insertions SKIN Skin intact without rashes. Results Reviewed Results Reviewed: Laboratory Tests 06/22/24 09:20 Rheumatoid Factor 24.6 H XR Right Hand 06/2024 FINDINGS: There is an irregularity/lytic lesion in the distal tuft of the second digit with surrounding soft tissue swelling. Alignment is anatomic. Joint spaces are maintained. No erosions or soft tissue calcifications. Assessment & Plan Assessment & Plan (1) Lytic bone lesions on xray: Code(s): M89.8X9 - Other specified disorders of bone, unspecified site Category: Medical Plan: #Lytic lesion on XR in the setting of positive RF Patient is a 64 y.o female here today for evaluation of lytic lesion on extreme setting of a positive rheumatoid factor. Rheumatoid arthritis is add disorder involving the joints which can form a pannus which leads to joint destruction. It is not common for rheumatoid arthritis to cause lytic lesions of a distal phalanx without evidence of joint destruction. At this time it is unclear whether this patient has rheumatoid arthritis but it is unlikely. I think we need to proceed with an MRI of the hand with and without contrast. Plan - Hand MRI w/wo contrast (2) Rheumatoid factor positive: Code(s): R76.8 - Other specified abnormal immunological findings in serum Category: Medical Plan: #Positive Rheumatoid factor The presence of a positive rheumatoid factor is can be associated with autoimmune diseases such as rheumatoid arthritis, Sjogren's, mixed connective tissue disease and lupus. However, a positive rheumatoid factor can be found in other non autoimmune conditions/situations such as chronic infections with hepatitis-B, C, tuberculosis and endocarditis; cancers including leukemia, multiple myeloma and primary sclerosing cholangitis; parasitic infections; patient is with history/current use of cigarettes; and healthy individuals.?In healthy individuals, the frequency of positive rheumatoid factor has been shown to be 1-5% At this time there is low suspicion for rheumatoid arthritis Plan - Check CCP, hepatitis panel, TB, SPEP and immunofixation - Check CBC, CMP, ESR, CRP 1. Alessandra Jordan, Jorge A JS, Manish DURANT. Rheumatoid Factor. 2022Mar 14. In: [employer] [Internet]. [place] ([place]): [employer]; 2024. PMID: [id number]. (3) Osteoarthritis of hands, bilateral: Code(s): M19.041 - Primary osteoarthritis, right hand; M19.042 - Primary osteoarthritis, left hand Qualifiers: Osteoarthritis type: primary Qualified Code(s): M19.041 - Primary osteoarthritis, right hand; M19.042 - Primary osteoarthritis, left hand Plan: #Bilateral Hand OA Patient with bilateral hand OA as significant Heberden nodes noted on bilateral hands. Has tried diclofenac topical gel past Not interested in any injections at this time Plan I spent 45 minutes reviewing the record and labs, taking a history, examining the patient, discussing the treatment plan and documenting in the medical record Orders: Orders Complete Blood Count Auto Diff Today M89.8X9 - Other specified disorders of bone, unspecified site, R76.8 - Other specified abnormal immunological findings in serum Comprehensive Met. Panel Today M89.8X9 - Other specified disorders of bone, unspecified site, R76.8 - Other specified abnormal immunological findings in serum C Reactive Protein Today M89.8X9 - Other specified disorders of bone, unspecified site, R76.8 - Other specified abnormal immunological findings in serum Cyclic Citrullinated Peptide Today M89.8X9 - Other specified disorders of bone, unspecified site, R76.8 - Other specified abnormal immunological findings in serum Hepatitis A,B,C Profile Today M89.8X9 - Other specified disorders of bone, unspecified site, R76.8 - Other specified abnormal immunological findings in serum Protein Electrophoresis, Serum Today M89.8X9 - Other specified disorders of bone, unspecified site, R76.8 - Other specified abnormal immunological findings in serum Immunofixation Pnl, Serum Today M89.8X9 - Other specified disorders of bone, unspecified site, R76.8 - Other specified abnormal immunological findings in serum MR hand RT wo/w con Today M89.8X9 - Other specified disorders of bone, unspecified site Erythrocyte Sedimentation Rate Today M89.8X9 - Other specified disorders of bone, unspecified site, R76.8 - Other specified abnormal immunological findings in serum T Spot TB Today M89.8X9 - Other specified disorders of bone, unspecified site, R76.8 - Other specified abnormal immunological findings in serum Coding Level of Care Code New Pt Level 4 (97310) Diagnoses Lytic bone lesions on xray M89.8X9 Rheumatoid factor positive R76.8 Primary osteoarthritis of both hands M19.041; M19.042 Osteoarthritis type: primary
[2024-10-04 10:18] VITALS: BP 152/115; PULSE 64; O2SAT 94; BMI 40.0
== END 2024-10-04 10:45 | disposition home or self-care (01) ==
PROVIDERS: PCP Internal Medicine; Visit Provider Student in an Organized Health Care Education/Training Program
DX: M89.8X9 Other specified disorders of bone, unspecified site (principal); R76.8 Other specified abnormal immunological findings in serum; M19.041 Primary osteoarthritis, right hand; M19.042 Primary osteoarthritis, left hand
CPT/HCPCS: 99204

== ENCOUNTER → 2024-10-04 10:03 | Outpatient (BNVA) | payer MEDICARE, SELFPAY | PROVIDERS: PCP Internal Medicine; Visit Provider Student in an Organized Health Care Education/Training Program | DX: M89.8X9 Other specified disorders of bone, unspecified site (principal); R76.8 Other specified abnormal immunological findings in serum; M19.041 Primary osteoarthritis, right hand; M19.042 Primary osteoarthritis, left hand | CPT/HCPCS: 99202 ==

== ENCOUNTER → 2024-10-15 14:01 | Outpatient (BNV) | payer MEDICARE, SELFPAY | PROVIDERS: PCP Internal Medicine; Visit Provider Radiology Diagnostic Radiology | DX: M79.641 Pain in right hand (principal); M19.041 Primary osteoarthritis, right hand; M89.8X9 Other specified disorders of bone, unspecified site; M89.241 Other disorders of bone development and growth, right hand | CPT/HCPCS: 73218 ==

== ENCOUNTER 2024-10-15 14:11 | Outpatient (REF) | payer MEDICARE, SELFPAY ==
--- NOTE | ~2024-10-15 | MR_ITS ---
CLINICAL HISTORY: M89.8X9 - Other specified disorders of bone, unspecified site Exam: MRI of the right hand without intravenous contrast. Comparison: None. Findings: This is a limited MRI examination of the right hand. Only localizer images and coronal T1 images were obtained without intravenous contrast. There are areas of metal artifact seen along the hand and wrist. Patient requested the examination be terminated due to concern for the risk of development of heat from the metal. [id number] degenerative change along the STT joint, 1st metacarpophalangeal joint, and IP joint of the thumb. No acute fracture or erosion. There is sclerosis along the ulnar aspect of the lunate. Scapholunate ligament is not adequately assessed on this exam. Triangular fibrocartilage is grossly intact. Mild scattered degenerative changes at the 2nd through 5th metacarpophalangeal joints in the interphalangeal joints. Impression: Markedly limited examination due to only a single sequence being performed. Please see above for full discussion regarding this limitation. Degenerative changes as discussed above without acute bony abnormality. Sclerosis along the ulnar aspect of the lunate suggest avascular necrosis. This document has been electronically signed by: Albert Lanza MD on 10/16/2024 10:08:01
== END 2024-10-15 14:12 | disposition home or self-care (01) ==
LOC: HO.MRI 14:11
PROVIDERS: PCP Internal Medicine; Visit Provider Student in an Organized Health Care Education/Training Program
DX: M89.8X9 Other specified disorders of bone, unspecified site (principal)
CPT/HCPCS: 73218

== ENCOUNTER 2024-10-15 14:52 | Outpatient (REF) | payer MEDICARE, SELFPAY | END 2024-10-15 14:53 | disposition home or self-care (01) | LOC: HO.LAB 14:52 | PROVIDERS: PCP Internal Medicine; Visit Provider Student in an Organized Health Care Education/Training Program | DX: Z13.89 Encounter for screening for other disorder (principal) ==

== ENCOUNTER 2024-11-12 11:28 | Outpatient (REF) | payer MEDICARE, SELFPAY ==
[2024-11-12 11:47] LABS: MANUAL DIFF FLAG NO
[2024-11-12 12:29] LABS: Basophils Absolute Auto 0.1 X10*3/uL (0.0-0.2); Basophils Percent Auto 0.5 % (0-2); Eosinophils Absolute Auto 0.2 X10*3/uL (0.0-0.4); Hematocrit 43.6 % (37.0-47.0); Hemoglobin 14.4 g/dl (12.0-16.0); Imm Gran Abs Auto 0.03 X10*3/uL (0.00-0.03); Imm Gran Pct Auto 0.3 % (0.0-0.4); Lymphocytes Absolute Auto 3.7 X10*3/uL (1.2-4.9); Lymphocytes Percent Auto 37.4 % (20-40); Mean Corpuscular Hemoglobin 29.7 pg (27.0-33.0); Mean Corpuscular Volume 89.9 fL (80.0-98.0); Mean Platelet Volume 10.5 fL (9.4-12.3); Monocytes Absolute Auto 0.4 X10*3/uL (0.1-1.2); Monocytes Percent Auto 4.1 % (2-11); Neutrophils Absolute Auto 5.5 x10*3/uL (2.0-8.3); Neutrophils Percent Auto 55.7 % (45-73); Platelet Count 220 X10*3/uL (160-400); Red Blood Count 4.85 X10*6/uL (4.20-5.50); Red Cell Distribution Width 13.6 % (11.0-16.0); White Blood Count 9.9 X10*3/uL (4.8-10.8)
[2024-11-12 13:04] LABS: Erythrocyte Sedimentation Rate 28 MM/HR (0-20)
[2024-11-12 13:07] LABS: Alanine Aminotransferase 14 U/L (0-31); Albumin Level 4.2 g/dL (3.5-5.0); Alkaline Phosphatase 89 U/L (39-117); Anion Gap 12 (12-20); Aspartate Amino Transferase 18 U/L (5-31); Bilirubin Total 0.3 mg/dL (0.0-1.0); Blood Urea Nitrogen 23 mg/dL (9-16); C Reactive Protein 1.16 mg/dL (< or = 0.50); Calcium 9.3 mg/dL (8.4-10.2); Carbon Dioxide 28 mmol/L (22-29); Chloride 109 mmol/L (96-108); Estimated Glomerular Filt Rate > 60; Glucose Random 88 mg/dL (60-115); Potassium 4.5 mmol/L (3.3-5.1); Sodium 144 mmol/L (135-145); Total Protein 7.2 g/dL (6.5-8.0)
[2024-11-12 13:10] LABS: Free T4 (Free Thyroxine) 0.96 ng/dL (0.71-1.85)
[2024-11-12 13:15] LABS: Thyroid Stimulating Hormone 1.45 uIU/mL (0.32-4.0)
[2024-11-12 13:16] LABS: HBS Num1 5.17 mIU/mL (0-7.99); HBc Num1 0.08 S/CO (0.00-0.79); HBsAGNum1 0.36 S/CO (0.00-0.99); Hepatitis A Antibody IgM 0.16 Index (0-0.79); Hepatitis B Core Antibody Nonreactive (Nonreactive); Hepatitis B Surface Antigen Negative (Negative); ~HepC Num1 0.15 S/CO (0.00-0.79); ~Hepatitis A Antibody IgM Nonreactive (Nonreactive); ~Hepatitis B Surface Antibody NONREACTIVE (Nonreactive); ~Hepatitis C Antibody Nonreactive (Nonreactive)
[2024-11-13 22:18] LABS: PES - Abn Protein Band 1 0.4 g/dL (NONE DETECTED); Prot Elec - Albumin 4.2 g/dL (3.8-4.8); Prot Elec - Alpha1 0.4 g/dL (0.2-0.3); Prot Elec - Alpha2 0.8 g/dL (0.5-0.9); Prot Elec - Beta 1 0.4 g/dL (0.4-0.6); Prot Elec - Beta 2 0.4 g/dL (0.2-0.5); Prot Elec - Total Protein 7.1 g/dL (6.1-8.1)
[2024-11-14 06:38] LABS: Cyclic Citrullinated Peptide <16 UNITS
[2024-11-14 12:18] LABS: IgA 145 mg/dL (70-320); IgG 1163 mg/dL (600-1540); IgM 117 mg/dL (50-300)
[2024-11-15 01:04] LABS: TS Negative Control Passed; TS Panel A 0; TS Panel B 0; TS Positive Control Passed; TSpotTB Negative (Negative)
== END 2024-11-12 11:29 | disposition home or self-care (01) ==
LOC: HO.LAB 11:28
PROVIDERS: PCP Internal Medicine; Visit Provider Student in an Organized Health Care Education/Training Program
DX: M89.8X9 Other specified disorders of bone, unspecified site (principal); R76.8 Other specified abnormal immunological findings in serum; K21.9 Gastro-esophageal reflux disease without esophagitis
CPT/HCPCS: 36415; 80053; 82784; 84165; 84439; 84443; 85025; 85652; 86140; 86200; 86334; 86481; 86704; 86706; 86709; 86803; 87340